=== PATIENT | female | born 1985 | race Caucasian/White ===

== ENCOUNTER 2021-02-20 11:52 | Emergency (ER) | payer OTHER, SELFPAY ==
[2021-02-20 11:58] VITALS: BP 97/51; PULSE 69; RESP 18; TEMP 36.2; O2SAT 100
[2021-02-20 13:07] LABS: Add Urine Microscopic? YES; Appearance Urine Cloudy (Clear); Bacteria Urine 4+ /hpf; Bilirubin Urine Negative (Negative); Blood Urine Negative (Negative); Color Urine Yellow (Yellow); Glucose Urine UA Negative (Negative); Ketones Urine Negative (Negative); Leukocyte Esterase Ur 3+ LEU/UL (Negative); Mucus Urine Rare /lpf; Nitrate Urine Negative (Negative); Protein Urine 1+ mg/dL (Negative); Specific Grav Ur 1.027 (1.001-1.035); Squamous Epithelial Cell Urine Many /hpf (Few); Urobilinogen Urine Negative mg/dL (<2.0); WBC Urine 31-50 /hpf
--- NOTE | 2021-02-20 13:21 | ED.GENADULT ---
HPI - General Adult General Chief complaint: Unspecified Stated complaint: Multiple C/O Time Seen by Provider: 02/20/21 13:18 Source: patient and RN notes reviewed Mode of arrival: ambulatory Limitations: no limitations History of Present Illness HPI narrative: Patient is 35 years old white female presents with vaginal discharge of white creamy material started 2 months ago, Last menstrual. October 2020, intermittent pimples and boils different parts of her body over the last 2 weeks. Patient is 2, para 2 0. Last vaginal intercourse was 3 months ago. Patient denies any fever, chills, nausea, vomiting, diarrhea, constipation, urinary symptoms. Patient does not smoke or drink or uses marijuana. Patient does not have a job. Related Data Allergies Allergy/AdvReac Type Severity Reaction Status Date / Time latex Allergy Intermediate rash with Verified 10/30/19 16:43 latex gloves Sulfa (Sulfonamide Allergy Mild BLISTERS Verified 10/30/19 16:43 Antibiotics) AND RASH venlafaxine [From Effexor] Allergy Other Verified 10/30/19 16:44 Review of Systems Review of Systems: Narrative: CONSTITUTIONAL: Denies fever, chills, or sweats. EYES: Denies visual changes, redness, or discharge. ENT: Denies rhinorrhea, congestion, sore throat, or otalgia. CARDIOVASCULAR: Denies chest pain, palpitations, or edema. RESPIRATORY: Denies cough or dyspnea. GASTROINTESTINAL: Denies abdominal pain, nausea, vomiting, or diarrhea. GENITOURINARY: Denies dysuria or hematuria. SKIN: Denies rash or itching. MUSCULOSKELETAL: Denies back pain, joint pain, or myalgia. NEUROLOGIC: Denies headache, numbness, or weakness. PSYCHIATRIC: Denies anxiety or depression. [facility] Past Medical History Medical History Anxiety Depression depression Surgical History Surgical History No history of previous surgery Social History Social History Smoking packs per day: 0.5 Smoking cigarettes per day: 10.0 Smoking status: Current every day smoker Tobacco type: cigarettes Second hand tobacco smoke exposure: Yes Exam Narrative: Exam Narrative: General appearance: Well-developed, well-nourished Skin: Few scattered pimples different spots of the body, with different stages of healing. Head: Normocephalic, nontraumatic Eyes: Clear conjunctiva ENT: Oropharynx normal, ears normal, nose normal Neck: Supple, nontender Chest and respiratory: Airway patent, no respiratory distress, no accessory muscle use Heart: Regular rate/rhythm Abdomen: Soft, nontender, no organomegaly, quiet bowel sounds Vascular: Normal peripheral pulses, normal capillary refill. Musculoskeletal: Normal range of motion, nontender back Neurologic: Alert and oriented ?3, WEB SPECIALIST is normal as tested, no gross motor deficit : External Female Exam: normal external appearance Speculum Exam - Vagina: normal appearance of the vagina Speculum Exam - Cervix: normal palpation and Cervical os closed Bimanual exam- vagina & uterus: normal bimanual exam Bimanual Exam- Adnexa, other: normal adnexae OB/external & speculum: external exam normal and vaginal discharge (Thick whitish discharge, no bleeding) Course Course Emergency Course: Stable Vital Signs Vital signs: Vital Signs Temperature 36.2 C L 02/20/21 11:58 Pulse Rate 69 02/20/21 11:58 Respiratory Rate 18 02/20/21 11:58 Blood Pressure 97/51 L 02/20/21 11:58 Pulse Oximetry 100 02/20/21 11:58 Temperature 36.2 C L 02/20/21 11:58 Pulse Rate 69 02/20/21 11:58 Res
[2021-02-20 15:30] LABS: Basophils Percent Auto 0.3 % (0.2-1.2); Eosinophils Absolute Auto 0.1 K/mm3 (0-0.3); Eosinophils Percent Auto 0.8 % (0-4.4); Hematocrit 36.9 % (37.0-47.0); Hemoglobin 12.2 g/dL (12.0-15.0); Immature Granulocyte Absolute 0.13 K/mm3 (0.00-0.031); Immature Granulocyte Percent A 1.5 % (0-0.5); Lymphocytes Absolute Auto 1.46 K/mm3 (0.9-3.2); Lymphocytes Percent Auto 16.8 % (18.3-44.2); Mean Corpuscular HGB Conc 33.1 g/dl (32-36); Mean Corpuscular Hemoglobin 30.2 pg (26-34); Mean Corpuscular Volume 91.3 fl (80-100); Mean Platelet Volume 10.7 fl (7.4-10.4); Monocytes Absolute Auto 0.5 K/mm3 (0.1-0.6); Monocytes Percent Auto 5.3 % (2.6-8.5); Neutrophils Absolute Auto 6.6 K/mm3 (1.3-6.7); Neutrophils Percent Auto 75.3 % (45.5-73.1); Platelet Count Result 284 k/mm3 (150-375); Red Blood Count 4.04 M/mm3 (4.2-5.4); Red Cell Distribution Width 13.4 % (11.5-14.5); White Blood Count 8.7 K/mm3 (4.5-10.0)
[2021-02-20 15:43] LABS: Alanine Aminotransferase 13 U/L (4-35); Albumin Level 3.7 g/dL (3.5-5.1); Alkaline Phosphatase 63 U/L (38-126); Anion Gap 5 mmol/L (8-16); Aspartate Amino Transferase 19 U/L (14-36); Bilirubin,Total < 0.1 mg/dL (0.2-1.3); Blood Urea Nitrogen 8 mg/dL (7-17); Calcium 8.8 mg/dL (8.4-10.2); Carbon Dioxide 25 mmol/L (22-30); Chloride 106 mmol/L (98-107); Estimated CRCL calculation 131 ml/min; Estimated Glomerular Filt Rate > 60; Glucose 79 mg/dL (65-105); Potassium 4.1 mmol/L (3.4-5.0); Sodium 136 mmol/L (137-145)
[2021-02-20] MEDS: AZITHROMYCIN 250 MG TABLET 1000 MG PO (17:03)
[2021-02-20] MEDS: cefTRIAXone 1 GM VIAL 0.5 GM IM (17:04)
== END 2021-02-20 17:05 | disposition home or self-care (01) ==
PROVIDERS: Emergency Medicine; Emergency Provider Emergency Medicine
DX: O23.41 Unspecified infection of urinary tract in pregnancy, first trimester (principal); O99.711 Diseases of the skin and subcutaneous tissue complicating pregnancy, first trimester; L08.9 Local infection of the skin and subcutaneous tissue, unspecified; B96.89 Other specified bacterial agents as the cause of diseases classified elsewhere; O99.331 Smoking (tobacco) complicating pregnancy, first trimester; F17.210 Nicotine dependence, cigarettes, uncomplicated; Z3A.12 12 weeks gestation of pregnancy
CPT/HCPCS: 36415; 80053; 81001; 81025; 84702; 85025; 85461; 87070; 87086; 87088; 87491; 87591; 87808; 96372; 99284; A9270; J0696

== ENCOUNTER 2021-07-04 06:10 | Inpatient (IN) | payer OTHER, SELFPAY ==
[2021-07-04] VITALS (60 sets, daily range): BP systolic 90–133; BP diastolic 41–86; PULSE 71–114; RESP 18–20; TEMP 35.9–36.8; O2SAT 95–100; BMI 32.8
[2021-07-04] MEDS: LACTATED RINGERS 1,000 ML 125 ML IV CONT ×2 (06:45→10:30)
[2021-07-04] MEDS: AMPICILLIN 2 GM/NS 100 ML 2 GM/100 ML BAG IVPB (06:45)
[2021-07-04] MEDS: OXYTOCIN 30 UNITS/NS 500 ML 30 UNITS/500 ML BAG IV CONT (06:55)
[2021-07-04 06:57] LABS: Basophils Absolute Auto 0.1 K/mm3 (0.0-0.1); Basophils Percent Auto 0.5 % (0.2-1.2); Eosinophils Absolute Auto 0.1 K/mm3 (0-0.3); Eosinophils Percent Auto 1.2 % (0-4.4); Hematocrit 30.2 % (37.0-47.0); Hemoglobin 9.9 g/dL (12.0-15.0); Immature Granulocyte Absolute 0.34 K/mm3 (0.00-0.031); Immature Granulocyte Percent A 3.1 % (0-0.5); Lymphocytes Absolute Auto 2.56 K/mm3 (0.9-3.2); Lymphocytes Percent Auto 23.3 % (18.3-44.2); Mean Corpuscular HGB Conc 32.8 g/dl (32-36); Mean Corpuscular Hemoglobin 29.4 pg (26-34); Mean Corpuscular Volume 89.6 fl (80-100); Mean Platelet Volume 11.1 fl (7.4-10.4); Monocytes Absolute Auto 0.8 K/mm3 (0.1-0.6); Monocytes Percent Auto 7.4 % (2.6-8.5); Neutrophils Absolute Auto 7.1 K/mm3 (1.3-6.7); Neutrophils Percent Auto 64.5 % (45.5-73.1); Platelet Count Result 344 k/mm3 (150-375); Red Blood Count 3.37 M/mm3 (4.2-5.4); Red Cell Distribution Width 14.9 % (11.5-14.5)
--- NOTE | 2021-07-04 07:12 | LDADM ---
This patient, Lynne Leiva, was admitted to Labor/Delivery/Recovery 104 on 07/04/21 at 06:10. Plans for labor, pain management and were discussed with patient. Patient/family oriented to hospital policies and general routines including ID bracelet, bed and alarms, visiting hours, pain management, procedures, bathroom and other care routines, personal items, smoking policy, room service/diet and guest tray routines, security routines, call light and visiting hours. Patient/Family are encouraged to report perceived risks to care and to ask questions if they do not understand what they are told or what they should do. See [facility]BIX for further documentation.
[2021-07-04 07:51] LABS: HIV 1/2 Ab P24 Ag Result Negative (Negative)
[2021-07-04 08:18] LABS: Amphetamine Screen Urine Negative (Negative); Barbiturate Screen Urine Negative (Negative); Benzodiazepines Screen Urine Negative (Negative); Cannabinoid Screen Urine Negative (Negative); Cocaine Screen Urine Negative (Negative); Methadone Screen Urine Negative (Negative); Opiate Screen Urine Negative (Negative); Phencyclidine Screen Urine Negative (Negative)
--- NOTE | 2021-07-04 09:04 | WPDANESEPP ---
Anes - Eval Pre Procedure Procedure: Labor Pain Management Date/Time: 07/04/21 09:04 Surgeon: Solomon Preop Diagnosis: Pain During Labor Pre Op Diagnosis: induction Patient Data Age: 35 Gender: F Height: 1.63 m Weight: 86.6 kg Last Vital Signs Temp 97.9 F 07/04/21 08:30 Pulse 73 07/04/21 08:00 BP 106/53 L 07/04/21 08:00 Allergies Allergy/AdvReac Type Severity Reaction Status Date / Time latex Allergy Intermediate rash with Verified 07/04/21 06:39 latex gloves Sulfa (Sulfonamide Allergy Mild BLISTERS Verified 07/04/21 06:39 Antibiotics) AND RASH venlafaxine [From Effexor] Allergy Other Verified 07/04/21 06:39 Laboratory Tests 07/04/21 07/04/21 07/04/21 06:47 06:47 06:47 WBC 11.0 K/mm3 H K/mm3 (4.5-10.0) RBC 3.37 M/mm3 L M/mm3 (4.2-5.4) Hgb 9.9 g/dL L g/dL (12.0-15.0) Hct 30.2 % L % (37.0-47.0) MCV 89.6 fl fl (80-100) MCH 29.4 pg pg (26-34) MCHC 32.8 g/dl g/dl (32-36) RDW 14.9 % H % (11.5-14.5) Plt Count 344 k/mm3 k/mm3 (150-375) MPV 11.1 fl H fl (7.4-10.4) Immature Gran % (Auto) 3.1 % H % (0-0.5) Neut % (Auto) 64.5 % % (45.5-73.1) Lymph % (Auto) 23.3 % % (18.3-44.2) [place] % (Auto) 7.4 % % (2.6-8.5) Eos % (Auto) 1.2 % % (0-4.4) Baso % (Auto) 0.5 % % (0.2-1.2) Lymph # (Auto) 2.56 K/mm3 K/mm3 (0.9-3.2) [place] # (Auto) 0.8 K/mm3 H K/mm3 (0.1-0.6) Eos # (Auto) 0.1 K/mm3 K/mm3 (0-0.3) Baso # (Auto) 0.1 K/mm3 K/mm3 (0.0-0.1) Abs Immat Gran (auto) 0.34 K/mm3 H K/mm3 (0.00-0.031) Absolute Neuts (auto) 7.1 K/mm3 H K/mm3 (1.3-6.7) Absolute Nucleated RBC 0.0 K/mm3 K/mm3 (0.0-0.012) Nucleated RBC % 0.0 % % (0.0-0.2) Urine Opiates Screen Urine Methadone Screen Ur Barbiturates Screen Ur Phencyclidine Scrn Ur Amphetamine Screen U Benzodiazepines Scrn Urine Cocaine Screen U Cannabinoids Screen RPR Pending HIV 1&2 Ab/P24 Ag 4thGn Negative (Negative) 07/04/21 07:30 WBC RBC Hgb Hct MCV MCH MCHC RDW Plt Count MPV Immature Gran % (Auto) Neut % (Auto) Lymph % (Auto) [place] % (Auto) Eos % (Auto) Baso % (Auto) Lymph # (Auto) [place] # (Auto) Eos # (Auto) Baso # (Auto) Abs Immat Gran (auto) Absolute Neuts (auto) Absolute Nucleated RBC Nucleated RBC % Urine Opiates Screen Negative (Negative) Urine Methadone Screen Negative (Negative) Ur Barbiturates Screen Negative (Negative) Ur Phencyclidine Scrn Negative (Negative) Ur Amphetamine Screen Negative (Negative) U Benzodiazepines Scrn Negative (Negative) Urine Cocaine Screen Negative (Negative) U Cannabinoids Screen Negative (Negative) RPR HIV 1&2 Ab/P24 Ag 4thGn : gestational age (07/10/21) HCG: positive Patient hx anesthesia problems: none Family hx anesthesia problems: none [facility] Past Medical History Medical History (Updated 07/04/21 @ 09:04 by Jennifer Escobedo CRNA) Anxiety Depression Pain during labor depression Surgical History Surgical History No history of previous surgery Social History Social History Smoking packs per day: 0.5 Smoking cigarettes per day: 10.0 Smoking status: Current every day smoker Tobacco type: cigarettes Second hand tobacco smoke exposure: Yes Additional smoking assessment comments: 1-2 cigs a day Substance use: former Spiritual care concerns
[2021-07-04] MEDS: AMPICILLIN 1 GM/NS 50 ML 1 GM/50 ML BAG IVPB (10:31)
--- NOTE | 2021-07-04 11:14 | P.PCNOB_ITS ---
OB - Delivery Note Procedure Route of delivery: Episiotomy description: None Laceration Description: Perineal - 1st Degree Delivery repair: chromic Specimen: Yes Quantitative Blood Loss (ml): 200 Anesthesia type: Epidural Disposition: floor Narrative: Patient prepped and draped in usual manner for this procedure. Ma ternal expulsive efforts and readily delivered over intact perineum. Cord was clamped and cut and placenta delivered spontaneously. Uterus was well contracted. Cervix vagina vulva were inspected with midline laceration noted which was readily approximated using 2 0 chromic in a running interlocking manner. At this point the procedure was considered terminated with immediate postoperative condition of mother and baby both excellent. [place] [facility] Weeks of gestation at delivery: 39 Infant gender: Male Weight (pounds): 8 Weight (ounces): 2 score one minute: 9 score five minutes: 9
--- NOTE | 2021-07-04 11:16 | WPDHPUPDATE1 ---
History and Physical Update Update Date/Time: 07/04/21 11:16 History and Physical has been reviewed, including an updated exam of the patient. There are NO changes in the patient's condition. Risks, benefits, and alternatives have been discussed and questions answered. Patient agrees to proceed with procedure.
--- NOTE | 2021-07-04 11:16 | WPDOBADMIT ---
Obstetrics - Admit Note Admission Note: record reviewed. No pertinent additions to the history and/or any subsequent changes in the physical findings that are not consistent with the expected course of the were found. Additions to the history and/or subsequent changes in the physical findings follow. None.
[2021-07-04] MEDS: OXYTOCIN 30 UNITS/NS 500 ML 30 UNITS/500 ML BAG 125 UNITS IV CONT (11:46)
[2021-07-04] MEDS: ACETAMINOPHEN 325 MG TABLET 650 MG PO ×2 (13:49→19:23)
--- NOTE | 2021-07-04 14:00 | OBPPTRN ---
Patient transferred to post room # 287 via wheelchair. Support person present. Oriented to unit, room, information board, rooming in, admission packet and security measures. Patient verbalizes understanding.
--- NOTE | 2021-07-04 16:45 | PC.NURSE ---
DCFS here to speak with pt. Report given to agent.
--- NOTE | 2021-07-04 17:40 | PC.NURSE ---
165: [facility] Agent came to see pt. [phone]: [facility] Agent asked when pt will be discharged to home. Told him that she will stay until Tuesday. Agent stated to not let pt take baby home until DCFS agent comes to see pt again on Tuesday before pt is discharged. He could not verify what the outcome of the today's visit would be; he reinforced that a different agent will be taking the case and will see pt. on Tuesday and any further information will be discussed at that time.
[2021-07-04] MEDS: IBUPROFEN 600 MG TABLET PO (23:33)
[2021-07-05 03:40] VITALS: BP 118/75; PULSE 73; RESP 18; TEMP 36.2; O2SAT 99
[2021-07-05] MEDS: ACETAMINOPHEN 325 MG TABLET 650 MG PO ×2 (03:54→17:05)
[2021-07-05 05:46] LABS: Hematocrit 31.3 % (37.0-47.0); Hemoglobin 9.8 g/dL (12.0-15.0)
--- NOTE | 2021-07-05 07:04 | PCCCNOTE ---
Addendum entered by DAVE Maravilla 07/14/21 15:59: Meconium results provided to Negra with [facility]. Addendum entered by DAVE Maravilla 07/06/21 15:22: Spoke to DCFS worker, Negra today. She indicates pt. able to discharge home with baby boy today. She plans to visit pt. at her home this evening. RN notified. Original Note: Received consult. Met with pt. Pt. reports living with her mother and grandmother. She confirms history of cocaine use. She states being depressed at time of heavy drug and alcohol use in the past. She reports participating in drug rehab and classes regarding same. She does not clarify when last used. She has two other children, ages 4 and 6. She confirms DCFS involvement and her father has custody of one child. She indicates other child being privately adopted. Her UDS is all negative. Meconium results pending. She indicates limited care as states not knowing she was until 6 months along. She indicates having all needed items to care for at return home with her mother and grandmother. She states father of baby is not involved. She reports no concerns or issues regarding this situation. Report made to [facility] regarding all above and employment case manager present at hospital last evening; 07/04/21. Per nursing documentation, pt. to be seen by DCFS prior to her discharge on Tuesday; 07/06/21 and determination to made regarding at that time. Intake ID#[id number].
[2021-07-05 07:50] VITALS: BP 105/63; PULSE 62; RESP 18; TEMP 36.7
[2021-07-05] MEDS: MULTIVIT/MIN/PREN/FOL AC/IRON TABLET 1 TAB PO (09:45)
[2021-07-05] MEDS: POLYSACCHARIDE IRON COMPLEX 150 MG CAPSULE PO ×2 (09:45→17:05)
[2021-07-05] MEDS: DOCUSATE SODIUM 100 MG CAPSULE PO ×2 (09:45→17:05)
[2021-07-05] MEDS: TETANUS,DIPHTHERIA,AC PERTUSSIS ADULT (0.5 ML) BOOSTRIX IM (09:46)
[2021-07-05] MEDS: IBUPROFEN 600 MG TABLET PO ×2 (09:49→17:06)
--- NOTE | 2021-07-05 10:29 | WPDANLDPN2 ---
Anes-Prog Note L&D Date/Time: 07/05/21 10:29 Comfortable throughout: labor and delivery Neuraxial method: epidural Epidural/Spinal procedure site: tender (pt complaints of generalized lower back pain with accompanying tenderness at insertion site.spoke with nurse re obtaining cooling pad for patient. (pt states too hot for warm pad ) ) Neuro status: Neuro function grossly intact. Cardiovascular status: normal Respiratory status: normal Airway patency: baseline Mental status: baseline Post-Op hydration status: normal Vital Signs: Last Vital Signs Temp 98.1 F 07/05/21 07:50 Pulse 62 07/05/21 07:50 Resp 18 07/05/21 07:50 BP 105/63 07/05/21 07:50 Pulse Ox 99 07/05/21 03:40 Pain score (VAS): 4 Post-procedural complaints: none Patient feedback: Patient satisfied with anesthetic care.
--- NOTE | 2021-07-05 10:36 | PM.OBDSVD ---
DS: Admitting Diagnosis Discharge Date 07/06/2021 Admitting Diagnosis OB - DS: Summary OB Procedures : None OB Procedures Intrapartum: Spontaneous Vag Delivery OB Procedures: : None Time Spent with Patient Time attestation: Total time spent providing and/or coordinating discharge services: DS: Data Data Completed and Pending Pending studies at discharge: Pending at discharge 07/04/21 13:30 Surgical [PTH] Routine Labs on day of discharge: Labs from last 24 hours 07/05/21 03:42 Hgb 9.8 L Hct 31.3 L Discharge Plan Discharge Discharging Clinician: Phil Carbajal Anticipated Discharge Date/Time: 07/06/21 10:36 Patient Disposition: Home, Self-Care Activity: as tolerated Diet: as tolerated Patient Instructions: Antibiotic Form, How to Stop Smoking (GEN) Stand Alone Forms: General Discharge Information Follow-up/Referrals: Phil Carbajal MD [Physician] - 3 Weeks Discharge Medications: New ibuprofen 600 mg Tablet 600 mg PO Q6H PRN (Reason: Cramping) Qty: 30 RF: 0 Date of admission: 07/04/21 06:10 Primary Care Provider: PHYSICIAN,SHEET ROCK INSTALLER Admitting Provider: Phil Carbajal Attending physician on admission: Phil Carbajal Condition: Stable
[2021-07-05 18:21] VITALS: BP 110/60; PULSE 65; RESP 16; TEMP 36.3; O2SAT 99
--- NOTE | 2021-07-05 19:30 | PC.NURSE ---
07/05/2021 at 1830 I entered the room and mother had not taken her meds of Tylenol 650 mg, Motrin, Iron, and Colace that had been handed to the patient at 1705. I actually watched the patient take these meds at this time.
--- NOTE | 2021-07-06 05:32 | PC.NURSE ---
07/06/2021 at 2200 Patient viewed the discharge video Mother & Baby Care, The First Two Weeks . Patient was given the opportunity and encouraged to ask questions. Patient verbalized understanding of information shared and has been given the mother/baby guide for home reference.
[2021-07-06] MEDS: MULTIVIT/MIN/PREN/FOL AC/IRON TABLET 1 TAB PO (07:23)
[2021-07-06] MEDS: POLYSACCHARIDE IRON COMPLEX 150 MG CAPSULE PO (07:23)
[2021-07-06] MEDS: IBUPROFEN 600 MG TABLET PO (07:23)
[2021-07-06] MEDS: DOCUSATE SODIUM 100 MG CAPSULE PO (07:23)
[2021-07-06 07:30] VITALS: BP 104/57; PULSE 66; RESP 16; TEMP 36.9; O2SAT 95
[2021-07-06 10:08] LABS: Rapid Plasma Reagin Non-Reactive (NonReactive)
[2021-07-06] MEDS: ACETAMINOPHEN 325 MG TABLET 650 MG PO (10:36)
--- NOTE | 2021-07-06 12:20 | PC.NURSE ---
Mother called out for assist with feeding, reporting is unable to latch without nipple shield. Mother will put infant to breast using shield, mother has pain with feeding. Infant is then supplemented and mother will pump. Mother is pumping without difficulties or discomfort and has a double electric pump for home use. Infant is able to freely thrust tongue to gum ridge and flange both lips. Both nipples are everted, skin is intact on both nipples, no redness or bruising noted. Mother reports pain with all feedings. Nipple care reviewed of lanolin after feedings, before pumping and warm compressed to nipples several times per day. Discussed nipple shield precautions and possible complications. Instructions given on application and cleaning of shield. Patient able to return demonstration on proper application of shield. Discussed the need for regular pumping, until her milk is well established and is able to empty breast and be satisfied without supplementation, if continues to nurse with the shield. Patient verbalizes understanding. Reviewed weaning techniques for nipple shield. Reviewed infant feeding cues, frequencies, duration of feedings, feeding elimination flow sheet, and signs of adequate intake. Demonstrated stimulation techniques to wake for feeding. Assisted with to breast. Reviewed positioning/alignment in football, holding breast in ?C? hold and guided asymmetrical latch on. Discussed rational for each. Several attempts made before was able to latch. Infant latched with a shallow latch, mother allowed infant to continue to nurse with pain. Demonstrated how to adjust latch more deeply while feeding. Mother reports she can feel the difference and does not have pain. Advised to stimulate to keep infant nursing effectively for increased intake, increased stimulation and assist with maintaining deep latch. Reviewed signs of a correct latch, effective nursing and suck swallow ratio. Infant nursed eagerly, with steady draws and occasional swallowing noted. Reviewed the difference of effective vs ineffective nursing. Discussed increasing supplementation as infant requires to satisfactions. Reviewed paced feeding and suggested to stop when infant is satisfied, as long as infant is having required output. With increased supplementation infant may not want to feed for 4 hours. Mother will continue to pump on feeding schedule and will increase session to 20 minutes if pumping every 4 hours 15 minutes if pumping every three hours. . Reviewed once mother?s milk is established and is effectively feeding may have increased intake with nursing. If is effective feeding with long draws and frequent swallowing noted , may be ready to decrease/discontinue supplementation. Advised not to discontinue supplement until ICP, Follow-Up RN or LC has a pre/post weighted evaluation of feeding. Instructed mother to call out for RN assistance if she is unable to latch infant for feeding or she has discomfort with nursing. Instructed feeding should be initiated three hours from start of last feeding or if feeding cues are noted before. Mother voiced understanding of information shared. Mother plans on discharge this day. Mother is feeding as required and waking infant to feed if needed. Infant is currently meeting outcomes for weight, output, jaundice and feeding frequencies. Mother states she feels confident to continue current feeding plan at home. Reviewed transition to breast milk, signs of adequate intake, and engorgement/relief. Instructed to call ICP if intake/output less than required. Reviewed regular medications mother is taking. Information provided per Janina. Reviewed community resources on the [employer] website and in the Mom/Baby guide. Information on outpatient services provided. Mother has no further q
--- NOTE | 2021-07-08 13:19 | PM.OBDSVD ---
DS: Admitting Diagnosis Discharge Date 07/06/21 Admitting Diagnosis OB - DS: Summary OB Procedures : None OB Procedures Intrapartum: Spontaneous Vag Delivery OB Procedures: : None Time Spent with Patient Time attestation: Total time spent providing and/or coordinating discharge services: DS: Data Data Completed and Pending Pending studies at discharge: Pending at discharge 07/04/21 13:30 Surgical [PTH] Routine Discharge Plan Discharge Discharging Clinician: Phil Carbajal Anticipated Discharge Date/Time: 07/06/21 10:36 Patient Disposition: Home, Self-Care Activity: as tolerated Diet: as tolerated Discharge Instructions: Education: Mom and Baby Guide Given to: Mother Follow-Up: Call your delivering provider's office for an appointment to be seen in: 3 weeks Mom and baby should come to the [facility] for the follow-up appointment. Appointment Date/Time: Thursday, July 08, 2021 at 8:00 am What to expect at your follow-up visit: Blood Pressure Check Physical Assessment Call [phone] if you are unable to keep your appointment time. BREAST CARE: * Wear a snug supportive bra. * For engorgement discomfort: Breast Feeding: * Apply warm moist washcloths * Express milk as needed to relieve engorgement * Wear loose clothing * For sore nipples: * Identify correct latch-on * Apply warm moist washcloths before and after nursing * Air dry nipples after nursing * May apply Lansinoh cream to nipples EPISIOTOMY/PERINEAL CARE: * Until bleeding stops, use your michelle bottle after urinating * Change your pad frequently throughout the day * You may take sitz baths several times a day (fill your bathtub with warm water and soak for 20 minutes.) Do NOT bathe in the water * No tub baths until seen by your physician - You may shower ACTIVITY: * Rest as much as possible. * Do not exercise or lift anything heavier than your baby (such as laundry or other children.) * Avoid stairs or driving as much as possible. * Do not put anything into the vagina. No douching, tampons, or sexual activity until seen by physician. NOTIFY PHYSICIAN IF YOU HAVE ANY QUESTIONS OR IF ANY OF THE FOLLOWING SYMPTOMS OCCUR: * If your vaginal delivery becomes red, swollen, or more painful than what you have experienced in the hospital. * If your vaginal bleeding becomes foul smelling. * If your vaginal bleeding becomes more heavy than a period or if your bleeding changes from pink to bright red. However, you may pass an occasional walnut-sized clot once or twice for the first week . * If you experience a sharp, shooting pain in your calves. * If you discover a hard, reddened area on your breast or if you experience flu-like symptoms. DIET: * Eat regular, well-balanced meals. * Drink plenty of fluids daily. If , drink to thirst. Patient Instructions: How to Stop Smoking (GEN), Vaginal Delivery (DC) Stand Alone Forms: General Discharge Information Follow-up/Referrals: Phil Carbajal MD [Physician] - 3 Weeks Discharge Medications: New ibuprofen 600 mg Tablet 600 mg PO Q6H PRN (Reason: Cramping) Qty: 30 RF: 0 Date of admission: 07/04/21 06:10 Primary Care Provider: PHYSICIAN,SCENE AND LIGHTING DESIGN LECTURER Admitting Provider: Phil Carbajal Attending physician on admission: hPil Carbajal Condition: Stable
== END 2021-07-06 17:30 | disposition home or self-care (01) | DRG 560 ==
LOC: ANHLDR 06:14 → ANHOB2 14:06
PROVIDERS: Admitting Provider Obstetrics & Gynecology; Visit Provider Obstetrics & Gynecology
DX: O99.334 Smoking (tobacco) complicating childbirth (principal); F17.210 Nicotine dependence, cigarettes, uncomplicated; Z3A.39 39 weeks gestation of pregnancy; Z37.0 Single live birth; O70.0 First degree perineal laceration during delivery
CPT/HCPCS: 36415; 80307; 85014; 85018; 85025; 86592; 86703; 86850; 86900; 86901; 88307; 90715; A9270; G0432; J0290; J2590; J2795; J7120

== ENCOUNTER 2021-12-21 14:16 | Emergency (ER) | payer OTHER, SELFPAY ==
[2021-12-21 14:21] VITALS: BP 120/78; PULSE 81; RESP 14; TEMP 36.3; O2SAT 100
--- NOTE | 2021-12-21 14:40 | ED.GENADULT ---
HPI - General Adult General Chief complaint: Unspecified Stated complaint: infection in nose Time Seen by Provider: 12/21/21 14:24 History of Present Illness HPI narrative: 36-year-old female presents to the emergency room with complaints of intranasal pain. Patient states that she frequently picks her nose, and has recently noticed some epistaxis. Also complains of sinus congestion, sinus drainage and postnasal drip. Symptoms of been present for 2 weeks. Denies taking any [id number] medications to alleviate symptoms Review of Systems Review of Systems: CONSTITUTIONAL: Denies fever, chills, or sweats. EYES: Denies visual changes, redness, or discharge. ENT: Per HPI: Reports rhinorrhea, congestion, dental pain. CARDIOVASCULAR: Denies chest pain, palpitations, or edema. RESPIRATORY: Denies cough or dyspnea. GASTROINTESTINAL: Denies abdominal pain, nausea, vomiting, or diarrhea. GENITOURINARY: Denies dysuria or hematuria. SKIN: Denies rash or itching. MUSCULOSKELETAL: Denies back pain, joint pain, or myalgia. NEUROLOGIC: Denies headache, numbness, dizziness, or weakness. PSYCHIATRIC: Denies anxiety or depression. Exam Narrative: GENERAL: Well-appearing, well-nourished, and in no acute distress. HEAD: Normocephalic, atraumatic. EYES: PERRLA and EOMI. ENT: Small, non-bleeding ulcerations to inferior turbinates, no epistaxis. Mucous membranes moist. Widespread poor dentition. NECK: Supple. No adenopathy or masses. No carotid bruits or JVD CHEST: Clear to auscultation. No respiratory distress. No wheezes rales or rhonchi HEART: Regular rate and rhythm. No murmur heard. Normal peripheral pulses. ABDOMEN: Soft, nontender, nondistended, normal active bowel sounds. EXTREMITIES: Normal range of motion. No edema. SKIN: Warm, dry, no rash. NEURO: No focal deficits. Alert and oriented x3. PSYCH: Normal mood and affect. Course Vital Signs Vital signs: Vital Signs Temperature 36.3 C L 12/21/21 14:21 Pulse Rate 81 12/21/21 14:21 Respiratory Rate 14 12/21/21 14:21 Blood Pressure 120/78 12/21/21 14:21 Pulse Oximetry 100 12/21/21 14:21 Temperature 36.3 C L 12/21/21 14:21 Pulse Rate 81 12/21/21 14:21 Respiratory Rate 14 12/21/21 14:21 Blood Pressure 120/78 12/21/21 14:21 Pulse Oximetry 100 12/21/21 14:21 Medical Decision Making Vital Signs Vital Signs: Vital Signs Temperature 36.3 C L 12/21/21 14:21 Pulse Rate 81 12/21/21 14:21 Respiratory Rate 14 12/21/21 14:21 Blood Pressure 120/78 12/21/21 14:21 Pulse Oximetry 100 12/21/21 14:21 Temperature 36.3 C L 12/21/21 14:21 Pulse Rate 81 12/21/21 14:21 Respiratory Rate 14 12/21/21 14:21 Blood Pressure 120/78 12/21/21 14:21 Pulse Oximetry 100 12/21/21 14:21 Discharge Plan Discharge Clinical Impression: Pain due to dental caries, Congestion of nasal sinus URI (upper respiratory infection) Qualifiers: URI type: unspecified URI Qualified Code(s): J06.9 - Acute upper respiratory infection, unspecified Patient Disposition: Hospice - Home Condition: Stable Additional Instructions: Recommend asking the pharmacist for pseudoephedrine 30 mg tablets. May take 1 tablet every 6 hours for sinus congestion. Prescriptions: New fluticasone propionate [Flonase Allergy Relief] 50 mcg/actuation spray,suspension 1 spray intranasal DAILY Qty: 16 RF: 0 amoxicillin-pot clavulanate 875-125 mg tablet 1 tablet PO Q12H Qty: 14 RF: 0 Follow-up/Referrals: UNKNOWN,DOCTOR [Primary Care Provider] - Time of Disposition: 14:53
== END 2021-12-21 15:00 | disposition home or self-care (01) ==
PROVIDERS: Emergency Provider Nurse Practitioner Family
DX: J06.9 Acute upper respiratory infection, unspecified (principal); K02.9 Dental caries, unspecified
CPT/HCPCS: 99283

== ENCOUNTER 2022-11-13 09:46 | Emergency (ER) | payer OTHER, SELFPAY ==
--- NOTE | ~2022-11-13 | CT_ITS ---
EXAMINATION: CT soft tissue neck w con DATE: 11/13/2022 11:28 INDICATION: Right lower jaw swelling. Dental infection. TECHNIQUE: Computed tomography (CT) of the neck was performed with 75 mL Omnipaque-350 intravenous co ntrast. The dose-length product was 521.00 mGy-cm. Automated exposure control and iterative reconstru ction technique were employed. COMPARISON: None FINDINGS: There is right perimandibular soft tissue swelling/asymmetry with subcutaneous fatty infilt ration, consistent with cellulitis. No discrete walled off fluid collection is identified. Mildly enl arged submandibular lymph nodes, likely reactive. Mildly enlarged mucosal and parapharyngeal spaces a re symmetric. Cervical lymph node chain enlargement, also likely reactive. No intracranial abnormalit y is seen. No significant abnormal intracranial contrast enhancement. The carotid arteries are unrema rkable. There are multiple dental caries. IMPRESSION: 1. Moderate inflammatory changes in the right perimandibular soft tissues without discrete abscess. 2: Mild cervical lymphadenopathy, likely reactive. Reviewed, dictated and finalized at location A. MOLD TESTER IMPRESSION: 1. Moderate inflammatory changes in the right perimandibular soft tissues witho ut discrete abscess. 2: Mild cervical lymphadenopathy, likely reactive.
[2022-11-13 09:47] VITALS: BP 118/72; PULSE 99; RESP 20; TEMP 36.6; O2SAT 97
--- NOTE | 2022-11-13 09:56 | ED.DENTAL ---
HPI - Dental/Oral General Chief complaint: Dental/Oral Stated complaint: TOOTH ISSUES Time Seen by Provider: 11/13/22 09:53 Source: patient Mode of arrival: ambulatory Limitations: no limitations History of Present Illness HPI Narrative: Patient is a 37 y/o female who presents to the ED with c/o right lower dental pain. Patient has a history of known dental fractures and dental caries. Reports she began having pain in her right lower teeth, particularly around tooth #29, over the last 2 days. She called her primary care doctor and was started on amoxicillin 875 mg. Patient has been taking this as directed. Last night, patient noticed worsening pain and swelling in her right lower jaw. She has tried using aspirin and Orajel with minimal relief. Reports nausea w/ 1 episode of vomiting last night, denies fever, trismus, sore throat, difficulty swallowing or breathing. Related Data Allergies Allergy/AdvReac Type Severity Reaction Status Date / Time latex Allergy Intermediate rash with Verified 11/13/22 11:04 latex gloves Sulfa (Sulfonamide Allergy Mild BLISTERS Verified 11/13/22 11:04 Antibiotics) AND RASH venlafaxine [From Effexor] Allergy Other Verified 11/13/22 11:04 Review of Systems Review of Systems: CONSTITUTIONAL: Denies fever, chills, or sweats. ENT: See HPI. CARDIOVASCULAR: Denies chest pain. RESPIRATORY: Denies cough or dyspnea. GASTROINTESTINAL: See HPI. All systems reviewed & are unremarkable except as noted in HPI and below PMFSH Past Medical History Medical History Anxiety Depression Pain during labor depression Surgical History Surgical History No history of previous surgery Social History Social History Smoking packs per day: 0.5 Smoking cigarettes per day: 10.0 Smoking status: Current every day smoker Tobacco type: cigarettes Second hand tobacco smoke exposure: Yes Additional smoking assessment comments: 1-2 cigs a day Substance use: former Spiritual care concerns: No Exam Narrative: GENERAL: Well appearing, obese, non-toxic, in no acute distress. HEAD: Normocephalic, atraumatic. ENT: No trismus. Significant dental decay diffusely. Several cracked teeth in R lower molar region, tenderness to palpation to inner and outer surrounding gumline, erythematous, no focal fluctuance. Area of induration and tenderness over right lower mandible at level of lower teeth. NECK: Supple. No adenopathy, no masses. RESPIRATORY: Airway patent, respirations nonlabored. Clear to auscultation bilaterally, no rales, rhonchi, wheezing. CARDIOVASCULAR: Regular rate and rhythm without murmurs, rubs, or gallops. Radial pulses 2+ and equal bilaterally. MUSCULOSKELETAL: Moves all extremities. Strength/ROM intact without gross deformities. SKIN: Warm, dry, normal color. No rashes. NEURO: A&O X3. Speech clear. Cranial nerves II-XII grossly intact. Steady gait. No ataxic movements. PSYCHIATRIC: Appropriate mood and affect. Normal interaction. HENMT: Teeth image: 1. severe dental decay, fractured teeth, exposed roots Course Vital Signs Vital signs: Vital Signs Temperature 98 F 11/13/22 09:47 Pulse Rate 99 11/13/22 09:47 Respiratory Rate 20 11/13/22 09:47 Blood Pressure 118/72 11/13/22 09:47 Pulse Oximetry 97 11/13/22 09:47 Oxygen Delivery Room Air 11/13/22 09:47 Temperature 98 F 11/13/22 09:47 Pulse Rate 99 11/13/22 09:47 Respiratory Rate 18 11/13/22 12:42 Blood Pressure 116/69 11/13/22 12:42 Pulse Oximetry 98 11/13/22 12:42 Oxygen Delivery Room Air 11/13/22 09:47 MDM - Dental/Oral MDM Narrative Medical decision making narrative: Patient presented to ED w/ 2 day history of R lower dental pain/infection, jaw swelling. VSS upon arrival. Afebrile.
[2022-11-13] MEDS: ONDANSETRON INJ 4 MG/2 ML VIAL IV PUSH (10:44)
[2022-11-13] MEDS: MORPHINE SULFATE (*CRX) 4 MG/ML INJ IV PUSH (10:44)
[2022-11-13 10:49] LABS: Basophils Percent Auto 0.4 % (0.2-1.2); Eosinophils Absolute Auto 0.1 K/mm3 (0-0.3); Eosinophils Percent Auto 0.6 % (0-4.4); Hematocrit 39.8 % (37.0-47.0); Immature Granulocyte Absolute 0.04 K/mm3 (0.00-0.031); Immature Granulocyte Percent A 0.4 % (0-0.5); Lymphocytes Absolute Auto 1.62 K/mm3 (0.9-3.2); Lymphocytes Percent Auto 16.6 % (18.3-44.2); Mean Corpuscular HGB Conc 32.7 g/dl (32-36); Mean Corpuscular Hemoglobin 27.8 pg (26-34); Mean Platelet Volume 10.3 fl (7.4-10.4); Monocytes Absolute Auto 0.6 K/mm3 (0.1-0.6); Monocytes Percent Auto 6.2 % (2.6-8.5); Neutrophils Absolute Auto 7.4 K/mm3 (1.3-6.7); Neutrophils Percent Auto 75.8 % (45.5-73.1); Platelet Count Result 311 k/mm3 (150-375); Red Blood Count 4.68 M/mm3 (4.2-5.4); Red Cell Distribution Width 14.3 % (11.5-14.5); White Blood Count 9.8 K/mm3 (4.5-10.0)
[2022-11-13 11:03] LABS: Alanine Aminotransferase 23 U/L (6-35); Albumin Level 4.3 g/dL (3.5-5.1); Alkaline Phosphatase 83 U/L (38-126); Anion Gap 6 mmol/L (8-16); Aspartate Amino Transferase 19 U/L (14-36); Bilirubin,Total 0.4 mg/dL (0.2-1.3); Blood Urea Nitrogen 6 mg/dL (7-17); Calcium 8.4 mg/dL (8.4-10.2); Carbon Dioxide 23 mmol/L (22-30); Chloride 104 mmol/L (98-107); Estimated CRCL calculation 145 ml/min; Estimated Glomerular Filt Rate > 60; Glucose 101 mg/dL (65-110); Potassium 3.9 mmol/L (3.4-5.0); Sodium 133 mmol/L (137-145)
[2022-11-13 12:42] VITALS: BP 116/69; RESP 18; O2SAT 98
== END 2022-11-13 12:44 | disposition home or self-care (01) ==
PROVIDERS: Emergency Provider Physician Assistant; PCP Registered Nurse
DX: K04.7 Periapical abscess without sinus (principal); L03.211 Cellulitis of face; K03.81 Cracked tooth; K02.9 Dental caries, unspecified; F17.210 Nicotine dependence, cigarettes, uncomplicated
CPT/HCPCS: 36415; 70491; 80053; 85025; 96374; 96375; 99284; J2270; J2405; Q9967

== ENCOUNTER 2023-08-26 11:22 | Emergency (ER) | payer OTHER, SELFPAY ==
[2023-08-26 11:26] VITALS: BP 123/75; PULSE 98; RESP 16; TEMP 36.4; O2SAT 98
--- NOTE | 2023-08-26 11:54 | ED.DENTAL ---
HPI - Dental/Oral General Chief complaint: Dental/Oral <Lindsay Sheppard PA-C - Last Filed: 08/26/23 12:02> Stated complaint: dental pain and swelling <Lindsay Sheppard PA-C - Last Filed: 08/26/23 12:02> Time Seen by Provider: 08/26/23 11:29 <Lindsay Sheppard PA-C - Last Filed: 08/26/23 12:02> History of Present Illness HPI Narrative: 37-year-old female with a history of dental caries, dental fractures and dental infections reports for evaluation for right lower dental pain and swelling that started yesterday. Patient states 1 week ago, she was eating chips and felt her right lower tooth break. States yesterday she began developing swelling and pain in this area and thinks there has been pus draining from her gum. She reports subjective fevers but has not taken her temperature. Denies difficulty breathing, swallowing, opening her mouth, sore throat or otalgia. States she does have a dentist but has not called to schedule an appointment. <Lindsay Sheppard PA-C - Last Filed: 08/26/23 12:02> Related Data Allergies/adverse reactions: Allergies Allergy/AdvReac Type Severity Reaction Status Date / Time latex Allergy Intermediate rash with Verified 08/26/23 11:24 latex gloves Sulfa (Sulfonamide Allergy Mild BLISTERS Verified 08/26/23 11:24 Antibiotics) AND RASH venlafaxine [From Effexor] Allergy Other Verified 08/26/23 11:24 <Lindsay Sheppard PA-C - Last Filed: 08/26/23 12:02> Review of Systems Review of Systems: CONSTITUTIONAL: Denies fever, chills EYES: Denies visual changes, redness, or discharge. ENT: See HPI CARDIOVASCULAR: Denies chest pain, palpitations, or edema. RESPIRATORY: Denies cough or dyspnea. GASTROINTESTINAL: Denies abdominal pain, nausea, vomiting, or diarrhea. GENITOURINARY: Denies dysuria or hematuria. SKIN: Denies rash or itching. MUSCULOSKELETAL: Denies back pain, joint pain, or myalgia. NEUROLOGIC: Denies headache, numbness, dizziness, or weakness. PSYCHIATRIC: Denies anxiety or depression. <Lindsay Sheppard PA-C - Last Filed: 08/26/23 12:02> [facility] Past Medical History Medical History: Medical History Anxiety Depression Pain during labor depression <Lindsay Sheppard PA-C - Last Filed: 08/26/23 12:02> Surgical History Surgical History: Surgical History No history of previous surgery <Lindsay Sheppard PA-C - Last Filed: 08/26/23 12:02> Social History Social History: Social History Smoking packs per day: 0.5 Smoking cigarettes per day: 10.0 Smoking status: Current every day smoker Tobacco type: cigarettes Second hand tobacco smoke exposure: Yes Additional smoking assessment comments: 1-2 cigs a day Substance use: former Spiritual care concerns: No <Lindsay Sheppard PA-C - Last Filed: 08/26/23 12:02> Exam Narrative: GENERAL: Well-appearing, in no acute distress. Patient resting comfortably in exam bed. HEAD: Normocephalic EYES: PERRLA ENT: Nares clear. Mucous membranes moist. Bilateral TMs are antonio nonbulging. Normal canals. Dental caries and fractures throughout mouth, especially in the right lower mandible. There is active purulent drainage to the base of #27 without fluctuance. Floor of mouth is soft without crepitus. There is facial swelling over the right mandible with induration. No erythema or fluctuance. No trismus. Patient tolerating secretions. No difficulty swallowing. NECK: Supple. CHEST: No respiratory distress. Clear to auscultation, no adventitious breath sounds. HEART: Regular rate and rhythm. No murmur heard. Normal peripheral pulses. EXTREMITIES: Normal range of motion. No edema. SKIN: Warm, dry, no rash. NEURO: No focal deficits. Alert and oriented x3. PSYCH: Normal mood and affect.
[2023-08-26] MEDS: HYDROcodone/acetaminophen (*CRX) 5-325 MG TABLET 1 TAB PO (12:18)
[2023-08-26] MEDS: AMOXICILLIN/CLAVULANATE K 875-125 MG TAB 1 TABLET PO (12:18)
== END 2023-08-26 12:22 | disposition home or self-care (01) ==
PROVIDERS: Emergency Provider Physician Assistant; PCP Registered Nurse
DX: K02.9 Dental caries, unspecified (principal); K04.7 Periapical abscess without sinus; S02.5XXA Fracture of tooth (traumatic), initial encounter for closed fracture; F17.210 Nicotine dependence, cigarettes, uncomplicated; X58.XXXA Exposure to other specified factors, initial encounter
CPT/HCPCS: 99283; A9270

== ENCOUNTER 2024-02-13 12:29 | Emergency (ER) | payer OTHER, SELFPAY ==
--- NOTE | ~2024-02-13 | CT_ITS ---
EXAMINATION: CT abdomen pelvis w con DATE: 02/13/2024 14:11 INDICATION: Diffuse abdominal pain, nausea, vomiting and diarrhea TECHNIQUE: Computed tomography (CT) of the abdomen and pelvis was performed with 100 cc Omnipaque 350 intravenous contrast. The dose-length product was 772.69 mGy-cm. Automated exposure control and iter ative reconstruction technique were employed. COMPARISON: None. FINDINGS: There is fluid throughout the stomach and small bowel to the ileocecal junction, most likel y ileus. There is debris in the stomach. Lung bases unremarkable. Heart size normal. No significant pleural or pericardial effusion. The liver , spleen, pancreas, adrenal glands and kidneys are unremarkable. Gallbladder is present. No free air or free fluid. No lymphadenopathy. No significant vascular abnormality. No acute osseous abnormality. IMPRESSION: 1. Fluid-filled stomach and small bowel without definite transition site, most likely ileus. Reviewed, dictated and finalized at location B.
[2024-02-13 12:42] VITALS: BP 119/96; PULSE 80; RESP 18; TEMP 36.1; O2SAT 100
--- NOTE | 2024-02-13 12:48 | ED.ABDPAIN ---
HPI - Abdominal Pain General Chief Complaint: Abdominal Pain <WAYNE Vallejo Last Filed: 02/13/24 12:55> Stated Complaint: abdominal pain <WAYNE Vallejo Last Filed: 02/13/24 12:55> Time Seen by Provider: 02/13/24 12:48 <WAYNE Vallejo Last Filed: 02/13/24 12:55> Focused HPI: Patient is a 38 y/o female who presents to the ED with c/o abdominal pain, N/V/D. Patient reports having sx's since this morning. C/o diffuse abdominal pain, nausea with 1 episode of emesis, diarrhea that is yellow/green in color, foul smelling belching. States she does still feel nauseous currently. Reported having similar sx's last week, lasted for 3 days before resolving. Denies family members with similar sx's. Denies fevers, rectal bleeding, melena, urinary complaints. Does report her son's father recently cheated on her. Would like to be tested for STDs. Denies vaginal discharge/bleeding, genital lesions. GENERAL: Well-appearing, well-nourished, and in no acute distress. HEAD: Normocephalic, atraumatic. CHEST: Clear to auscultation. ?No respiratory distress. HEART: Regular rate and rhythm.? ABD: Diffuse tenderness to palpation. No rebound. Normoactive BS. NEURO: ?Alert and oriented x3. Patient screened in triage and initial orders placed.? ?Additional care and disposition to be based upon?diagnostic testing and treatment. <WAYNE Vallejo Last Filed: 02/13/24 12:55> Source: patient <WAYNE Vallejo Last Filed: 02/13/24 12:55> Mode of arrival: ambulatory <WAYNE Vallejo Last Filed: 02/13/24 12:55> Limitations: no limitations <WAYNE Vallejo Last Filed: 02/13/24 12:55> History of Present Illness HPI narrative: 38-year-old female presenting to the emergency department for evaluation of persistent nausea vomiting diarrhea and diffuse abdominal pain that started this morning. <Paul Garcia MD - Last Filed: 02/18/24 07:49> Related Data Allergies/Adverse Reactions: Allergies Allergy/AdvReac Type Severity Reaction Status Date / Time latex Allergy Intermediate rash with Verified 02/13/24 12:29 latex gloves Sulfa (Sulfonamide Allergy Mild BLISTERS Verified 02/13/24 12:29 Antibiotics) AND RASH venlafaxine [From Effexor] Allergy Other Verified 02/13/24 12:29 <Lynne Miramontes PA-C - Last Filed: 02/13/24 12:55> Review of Systems Review of Systems: All systems reviewed & are unremarkable except as noted in HPI and below <Paul Garcia MD - Last Filed: 02/18/24 07:49> PMFSH Past Medical History Medical History: Medical History Anxiety Depression Pain during labor depression <Lynne Miramontes PA-C - Last Filed: 02/13/24 12:55> Surgical History Surgical History: Surgical History No history of previous surgery <Lynne Miramontes PA-C - Last Filed: 02/13/24 12:55> Social History Social History: Social History Smoking packs per day: 0.5 Smoking cigarettes per day: 10.0 Smoking status: Current every day smoker Tobacco type: cigarettes Second hand tobacco smoke exposure: Yes Additional smoking assessment comments: 1-2 cigs a day Substance use: former Spiritual care concerns: No <Lynne Miramontes PA-C - Last Filed: 02/13/24 12:55> Exam Narrative: APPEARANCE: Well appearing, no pain, no distress, well-nourished. HEAD: normocephalic, atraumatic. EYES: PERRLA/EOMI, conjunctivae clear. NOSE: Normal no drainage EARS:TMS clear with good light reflex. THROAT: Pharynx clear, no exudate. NECK: Supple. No adenopathy, no masses. RESPIRATORY: Airway patent, respirations nonlabored. Clear to auscultation bilaterally, no rales, rhonchi, wheezing. CARDIOVASCULAR
[2024-02-13] MEDS: BELLADONNA ALK/PHENOB ELIX 10 ML, MAG HYDROX/ALUMINUM HYD/SIMETH 30 ML, LIDOCAINE HCL 2... PO (13:15)
[2024-02-13] MEDS: ONDANSETRON HCL ODT 4 MG TABLET PO (13:16)
[2024-02-13] MEDS: ACETAMINOPHEN 500 MG TABLET 1000 MG PO (13:16)
[2024-02-13 13:37] LABS: Basophils Absolute Auto 0.1 K/mm3 (0.0-0.1); Basophils Percent Auto 0.3 % (0.2-1.2); Eosinophils Absolute Auto 0.1 K/mm3 (0-0.3); Eosinophils Percent Auto 0.7 % (0-4.4); Hematocrit 46.3 % (37.0-47.0); Hemoglobin 14.5 g/dL (12.0-15.0); Immature Granulocyte Absolute 0.09 K/mm3 (0.00-0.031); Immature Granulocyte Percent A 0.6 % (0-0.5); Lymphocytes Absolute Auto 1.35 K/mm3 (0.9-3.2); Lymphocytes Percent Auto 8.9 % (18.3-44.2); Mean Corpuscular HGB Conc 31.3 g/dl (32-36); Mean Corpuscular Hemoglobin 27.7 pg (26-34); Mean Corpuscular Volume 88.4 fl (80-100); Mean Platelet Volume 10.5 fl (7.4-10.4); Monocytes Absolute Auto 0.7 K/mm3 (0.1-0.6); Monocytes Percent Auto 4.8 % (2.6-8.5); Neutrophils Absolute Auto 12.9 K/mm3 (1.3-6.7); Neutrophils Percent Auto 84.7 % (45.5-73.1); Platelet Count Result 358 k/mm3 (150-375); Red Blood Count 5.24 M/mm3 (4.2-5.4); Red Cell Distribution Width 14.5 % (11.5-14.5); White Blood Count 15.2 K/mm3 (4.5-10.0)
[2024-02-13 13:53] LABS: Alanine Aminotransferase 25 U/L (6-35); Alkaline Phosphatase 81 U/L (38-126); Anion Gap 12 mmol/L (4-12); Aspartate Amino Transferase 21 U/L (14-36); Bilirubin,Total 0.5 mg/dL (0.2-1.3); Blood Urea Nitrogen 16 mg/dL (7-17); Calcium 10.5 mg/dL (8.4-10.2); Carbon Dioxide 20 mmol/L (22-30); Chloride 108 mmol/L (98-107); Estimated CRCL calculation 64 ml/min; Estimated Glomerular Filt Rate 50; Glucose 115 mg/dL (65-110); Lipase 42 U/L (23-300); Potassium 4.7 mmol/L (3.4-5.0); Sodium 140 mmol/L (137-145)
[2024-02-13 14:03] LABS: Estimated CRCL calculation 64 ml/min; Estimated Glomerular Filt Rate 50
[2024-02-13] MEDS: SODIUM CHLORIDE 0.9% IV 1,000 ML 999 ML IV CONT (14:21)
[2024-02-13 14:23] LABS: Add Urine Microscopic? YES
[2024-02-13 14:24] LABS: Appearance Urine Cloudy (Clear); Bilirubin Urine 3+ (Negative); Blood Urine Trace-intact (Negative); Color Urine Yellow (Yellow); Glucose Urine UA Negative (Negative); Ketones Urine 1+ mg/dL (Negative); Leukocyte Esterase Ur 1+ LEU/UL (Negative); Nitrate Urine Negative (Negative); Protein Urine 3+ mg/dL (Negative); Specific Grav Ur >= 1.030 (1.001-1.035); pH Urine 5.5 (5.0-9.0)
[2024-02-13 14:26] LABS: Squamous Epithelial Cell Urine Many /hpf (Few)
[2024-02-13 14:59] LABS: Toxigenic C. Diff NEGATIVE (NEGATIVE)
[2024-02-13 15:42] LABS: Trichomonas Vag PCR NOT DETECTED (NOT DETECTE)
[2024-02-13 16:07] LABS: Chlamydia trachomatis NOT DETECTED (NOT DETECTE); Neisseria gonorrhoeae PCR NOT DETECTED (NOT DETECTE)
[2024-02-13 17:11] VITALS: BP 145/68; PULSE 80; RESP 16; O2SAT 99
== END 2024-02-13 17:12 | disposition home or self-care (01) ==
PROVIDERS: Physician Assistant; Emergency Provider Emergency Medicine; PCP Registered Nurse
DX: K56.7 Ileus, unspecified (principal); F17.210 Nicotine dependence, cigarettes, uncomplicated
CPT/HCPCS: 36415; 74177; 80053; 81001; 81025; 83690; 85025; 87045; 87086; 87088; 87427; 87449; 87491; 87493; 87591; 87661; 96360; 99284; A9270; J7030; Q9967

== ENCOUNTER 2024-03-27 01:32 | Emergency (ER) | payer OTHER, SELFPAY ==
[2024-03-27 01:31] VITALS: PULSE 73; RESP 15; TEMP 37.4; O2SAT 97
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
[2024-03-27 02:18] VITALS: BP 104/60
== END 2024-03-27 02:21 ==
PROVIDERS: Emergency Provider Physician Assistant; PCP Registered Nurse
DX: T59.3X1A Toxic effect of lacrimogenic gas, accidental (unintentional), initial encounter (principal); H57.89 Other specified disorders of eye and adnexa; F17.210 Nicotine dependence, cigarettes, uncomplicated; Y35.893A Legal intervention involving other specified means, suspect injured, initial encounter
CPT/HCPCS: 99283; J7030

== ENCOUNTER 2024-05-06 13:08 | Emergency (ER) | payer OTHER, SELFPAY ==
[2024-05-06 13:29] VITALS: BP 126/80; PULSE 73; RESP 18; TEMP 36.6; O2SAT 99
--- NOTE | 2024-05-06 14:21 | ED.URI ---
HPI - URI/Sore Throat General Chief Complaint: Upper Respiratory Infection Stated Complaint: flu symptoms Time Seen by Provider: 05/06/24 13:46 History of Present Illness HPI Narrative: Patient is a 38 year female who presents ER with cold symptoms. Ongoing for last week. She caught it from her son. Reports sinus congestion with sore throat and cough. No chest pain or chest pressure. Mild fatigue. Low-grade temps at home. Related Data Allergies Allergy/AdvReac Type Severity Reaction Status Date / Time latex Allergy Intermediate rash with Verified 02/13/24 12:29 latex gloves Sulfa (Sulfonamide Allergy Mild BLISTERS Verified 02/13/24 12:29 Antibiotics) AND RASH venlafaxine [From Effexor] Allergy Other Verified 02/13/24 12:29 Review of Systems Constitutional: Constitutional: Reports fatigue and Reports fever(s) ENT: Reports nasal congestion and Reports sore throat Cardiovascular: Cardiovascular: Reports no additional cardiovascular complaints Respiratory: Respiratory: Reports cough, Denies dyspnea and Denies wheezing PMFSH Past Medical History Medical History Anxiety Depression Pain during labor depression Surgical History Surgical History No history of previous surgery Social History Social History Smoking packs per day: 0.5 Smoking cigarettes per day: 10.0 Smoking status: Current every day smoker Tobacco type: cigarettes Second hand tobacco smoke exposure: Yes Additional smoking assessment comments: 1-2 cigs a day Substance use: former Spiritual care concerns: No Exam Narrative: GENERAL: Well-appearing, well-nourished, and in no acute distress. HEAD: Normocephalic, atraumatic. ENT: Mucous membranes moist. CHEST: Clear to auscultation. No respiratory distress. HEART: Regular rate and rhythm. Normal peripheral pulses. EXTREMITIES: Normal range of motion. No edema. SKIN: Warm, dry, no rash. NEURO: Alert and oriented x3. PSYCH: Normal mood and affect. Course Course Emergency Course: Patient with URI. COVID/flu/RSV negative. Vital Signs Vital signs: Vital Signs Temperature 97.9 F 05/06/24 13:29 Pulse Rate 73 05/06/24 13:29 Respiratory Rate 18 05/06/24 13:29 Blood Pressure 126/80 05/06/24 13:29 Pulse Oximetry 99 05/06/24 13:29 Temperature 97.9 F 05/06/24 13:29 Pulse Rate 73 05/06/24 13:29 Respiratory Rate 18 05/06/24 13:29 Blood Pressure 126/80 05/06/24 13:29 Pulse Oximetry 99 05/06/24 13:29 MDM - URI/Sore Throat Lab Data Labs: Lab Results 05/06/24 Range/Units 14:09 Influenza A (RT-PCR) Negative (Negative) Influenza B (RT-PCR) Negative (Negative) RSV (RT-PCR) Negative (Negative) SARS-CoV-2 RNA (RT-PCR) Negative (Negative) Discharge Plan Discharge Clinical Impression: Viral infection Patient Disposition: Home, Self-Care Condition: Stable Instructions: Viral Syndrome (ED) Additional Instructions: As discussed you have a viral illness. Unfortunately there are no specific medications we can give you to make the illness end faster. Antibiotics do not work for viral illnesses. However, you can take Acetaminophen or Ibuprofen to help with fevers and pain. Stay well hydrated and rested. Return to the emergency department if your fevers and chills continue to worse after 5 days, if you develop worsening cough with thick sputum, or are unable to stay hydrated. Contact your primary care provider in the next few days for a re-evaluation and to make sure your symptoms are improving. Prescriptions: New guaifenesin [Mucus Relief ER] 600 mg tablet extended release 12hr 600 mg PO BID Qty: 14 0RF Saline Nasal Mist 3 % mist 1 spray intranasal QID Qty: 126 0RF No Action fluticasone p
[2024-05-06 14:54] LABS: Influenza A QL RT-PCR Negative (Negative); Influenza B QL RT-PCR Negative (Negative); RSV RNA, RT-PCR Negative (Negative); SARS-CoV-2 RNA PCR Negative (Negative)
== END 2024-05-06 15:26 | disposition home or self-care (01) ==
PROVIDERS: Emergency Medicine; Emergency Provider Emergency Medicine; PCP Registered Nurse
DX: B34.9 Viral infection, unspecified (principal); F17.210 Nicotine dependence, cigarettes, uncomplicated; Z20.822 Contact with and (suspected) exposure to COVID-19
CPT/HCPCS: 87637; 99283

== ENCOUNTER 2025-02-13 11:03 | Emergency (ER) | payer OTHER, SELFPAY ==
--- NOTE | ~2025-02-13 | XR_ITS ---
Clinical Indication: Cough PA and lateral views of the chest: Comparison: None Findings: The lungs are clear, without evidence of focal consolidation or pleural effusion. Cardiome diastinal silhouette is within normal limits. Bones and soft tissues are unremarkable. Impression: Normal chest. Reviewed, dictated and finalized at location . Impression: Normal chest.
[2025-02-13 11:10] VITALS: BP 106/70; PULSE 76; RESP 20; TEMP 36.9; O2SAT 97
[2025-02-13 12:06] VITALS: O2SAT 97
--- OUTSIDE RECORDS SUMMARY | 2025-02-13 12:26 | XMS_ITS | Clinical Summary ---
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 Gender Identity Not on file Sexual Orientation Not on file Obstetrics History Para Term AB IAB SAB Ectopic Multiple Livin g Live Births 1 Date Outcome GA Total Labor Labor/2nd/3rd Weight Sex Type Anes PTL Aidee A1 A5 Name Clin Last Filed Vital Signs Vital Sign Reading Time Taken Comments Blood Pressure 108/58 04/07/2021 7:00 AM CDT Pulse 80 04/07/2021 7:00 AM CDT Temperature 36.9 C (98.5 F) 04/07/2021 1:44 AM CDT Respiratory Rate 19 04/07/2021 7:00 AM CDT Oxygen Saturation 100% 04/07/2021 7:00 AM CDT Inhaled Oxygen Concentration - - Weight 74.8 kg (164 lb 14.5 oz) 04/07/2021 1:44 AM CDT Height 162.6 cm (5' 4 ) 04/07/2021 1:44 AM CDT Body Mass Index 28.31 04/07/2021 1:44 AM CDT Plan of Treatment Not on file Insurance [employer]ETNA [facility]TER [facility] [place] Care Teams Analysis Reporting Developer Relationship Specialty Start Date End Date Murali Stewart MD PCP - General Emergency Medicine 04/07/21
--- OUTSIDE RECORDS SUMMARY | 2025-02-13 12:26 | XMS_ITS | Clinical Summary ---
Author Organization [facility] Address [facility] [place] [address] Care Team Providers Care County Adviser Name Role Phone Tess Vasquez CIRILO Primary Care Provider Allergies Active Allergy Reactions Criticality Noted Date Comments Venlafaxine Other (see comment) 04/14/2022 Schizophrenia symptoms. Makes her feel this way. Sulfa Antibiotics Contact Dermatitis 09/16/2022 Highly allergic to sulfas. Blisters! Sulfamethoxazole-Trimet hoprim Contact Dermatitis 04/14/2022 Medications 27-1 MG tablet Take 1 tablet by mouth daily. 1 Active fluticasone propionate 50 MCG/ACT nasal spray INSTILL 1 SPRAY INTO EACH NOSTRIL ONCE A DAY 2 Active predniSONE (DELTASONE) 20 MG tabletIndication s:Pharyngitis, unspecified etiology Take two tabs once daily for 3 days 6 tablet 2 Active Additional Information Patient not taking.Reported on 11/18/2022 HYDROcodone-acet aminophen (NORCO) 10-325 MG tabletIndication s:Acute Pain < 7 Day Supply Indications: Acute Pain < 7 Day Supply Take 1/2 tablet every 8 hours as needed for pain. 5 tablet 3 Active Active Problems Problem Noted Date Diagnosed Date History of depression 04/14/2022 BMI 34.0-34.9,adult 04/14/2022 Anxiety 04/14/2022 Current every day smoker 04/14/2022 Immunizations Immunization Administration Dates Next Due HPV4 (Gardasil) 01/19/2008 Influenza (Generic) 07/14/2024 Tdap (Generic) 07/05/2021 Family History Medical History Relation Comments Diabetes Brother Pancreatitis Brother Cancer Father Heart Attack Maternal Grandfather Heart Attack Maternal Grandmother carotid artheries Mother Cancer Paternal Grandmother No Known Problems Son Relation Status Comments Brother Alive Father Alive Maternal Grandfather Maternal Grandmother Mother Alive Paternal Grandfather Paternal Grandmother Son Alive Social History Tobacco Use Types Packs/Day Years Used Date Smoking Tobacco: Some Days Cigarettes 0.3 15 Smokeless Tobacco: Never Tobacco Cessation:Ready to Q uit: No; Counseling Given: Yes Comments:Provider can provide counseling to patient Alcohol Use Standard Drinks/Week Comments Not Currently 0 (1 standard drink = 0.6 oz pure alcohol) in the past. Pt quit drinking PHQ-2 Answer Date Recorded PHQ-2 Score - If the patient scores above 3, please move on to questions 3-9 1 04/14/2022 Comments No Sex and Gender Information Value Date Recorded Sex Assigned at Not on file Legal Sex Female 8:12 PM CDT Gender Identity Not on file Sexual Orientation Not on file Last Filed Vital Signs Vital Sign Reading Time Taken Comments Blood Pressure 108/71 10/15/2022 2:11 PM PRINCIPAL SECURITY ARCHITECT Pulse 80 10/15/2022 2:11 PM PRINCIPAL SECURITY ARCHITECT Temperature 36.7 C (98.1 F) 10/15/2022 2:11 PM PRINCIPAL SECURITY ARCHITECT Respiratory Rate 16 10/15/2022 2:11 PM PRINCIPAL SECURITY ARCHITECT Oxygen Saturation 100% 10/15/2022 2:11 PM PRINCIPAL SECURITY ARCHITECT Inhaled Oxygen Concentration - - Weight 95.7 kg (211 lb) 10/15/2022 2:11 PM PRINCIPAL SECURITY ARCHITECT Height 162.6 cm (5' 4 ) 10/15/2022 2:11 PM PRINCIPAL SECURITY ARCHITECT Body Mass Index 36.22 10/15/2022 2:11 PM PRINCIPAL SECURITY ARCHITECT Plan of Treatment Health Maintenance Due Date Last Done Comments Annual Physical 1988 Hepatitis B Vaccines (1 of 3 - 19+ 3-dose series) 2004 Pneumococcal Vaccine: Pediatrics (0 to 5 Years) and At-Risk Patients (6 to 49 Years) (1 of 2 - PCV) 2004 HPV Vaccines (2 - 3-dose series) 02/16/2008 01/19/2008 PHQ-2 (Physician [place]) 10/17/2024 Cervical Cancer Screening Pa p Smear (Age 30 to 64) Every 3 Years 09/16/2025 09/16/2022 Cervical Cancer Screening Pa p with HPV Testing (Age 30 to 64) Every 5 Years 09/16/2027 09/16/2022 Cervical Cancer Screening wi th HPV 09/16/2027 DTaP, Tdap and Td Vaccines ( 2 - Td or Tdap) 07/05/2031 07/05/2021 Hepatitis C Completed 09/16/2022 COVID-19 Vaccine Completed 07/14/2024, 05/27/2021, 04/23/2021 Meningococcal B Vaccine Aged Out No l onger eligible based on patient's age to complete this topic Meningococcal Vaccine Aged Out No nawaf shireen eligible based on patient's age to complete this topic RSV Immunizations Under 20 Months Aged Out No longer eligible b ased on patient's age to complete this topic Procedures Procedure Name Priority Date/Time Associated Diagnosis Comments HEPATITIS C ANTIBODY Routine 09/16/2022 12:20 PM PRINCIPAL SECURITY ARCHITECT Unprotected sex Vaginal discharge HPV MRNA E6/E7 Routine 09/16/2022 11:17 AM PRINCIPAL SECURITY ARCHITECT CYTOPATH CERV/VAG THIN LAYER Routine 09/16/2022 11:17 AM PRINCIPAL SECURITY ARCHITECT Encounter for well woman exam from Last 3 Months or Most Recently Relevant to Health Maintenance Results * HEPATITIS C ANTIBODY ([facility] ONLY) (09/16/2022 12:20 PM PRINCIPAL SECURITY ARCHITECT) HEPATITIS C AB NON-REACTI VE NON-REACT [place] 09/16/2022 10:01 PM PRINCIPAL SECURITY ARCHITECT [facility] Comment: ANTIBODIES TO HCV NOT DETECTED. DOES NOT EXCLUDE THE POSSIBILITY OF EXPOSURE TO HCV. 09/16/2022 12:2 0 PM PRINCIPAL SECURITY ARCHITECT Tess KERR LABORATORY Final Resul t [facility] [address] [place] [address], [id number] * HPV MRNA E6/E7 (09/16/2022 11:17 AM PRINCIPAL SECURITY ARCHITECT) Pathologist [facility] HPV MRNA E6/E7 Not Detected Not Detected [facility] Comment: Methodology: Direct Marketing Intern-Mediated Amplification This assay detects E6/E7 viral messenger RNA (mRNA) from 14 high-risk HPV types (16,18,31,33,35,39,45,51,52,56,58,59,66,68). Cervical sources are required for HPV testing. If a vaginal source from a patient who has had a total hysterectomy with removal of cervix was submitted, please contact the testing laboratory for alternative testing options. For additional information, please refer to http://education.YouChe.com/faq/GEM971l8 (This link if provided for information/ educational purposes only.) 09/16/2022 11:1 7 AM PRINCIPAL SECURITY ARCHITECT 09/17/2022 12:30 AM PRINCIPAL SECURITY ARCHITECT Narrative Resulting Agency Comment Performing Organization Information: Site ID: [place] Name: [facility] Address: [address] [place], [place] [address] [place] [address] Director: Param Ramirez D.O., MPH Tess KERR PATHOLOGY/CYTOLOGY ORDERABL ES Final Result D and K interprises [facility] [id number] [place] [address] [place] [address], * Cytopath Cerv/Vag Thin Layer (09/16/2022 11:17 AM PRINCIPAL SECURITY ARCHITECT) CLINICAL INFORMATION: Routine exam [place] Clinical Information: 08/30/2022 [place] Date of Last Pap NONE GIVEN [employer] [place] Previous Biopsy? NONE GIVEN [employer] [place] SOURCE (QST) Cervix, Endocervix [facility] [employer] [place] STATEMENT OF ADEQUACY: [facility] [employer] [place] Comment: Satisfactory for evaluation. Endocervical/transformation zone component present. PAP INTERPRETATION/RESU LTS Negative for intraepithelial lesion or malignancy. [place] INFECTION: Shift in vaginal sanjuana suggestive of bacterial vaginosis. [facility] [place] [facility] [place] Comment: LM, CT(ASCP) CT screening location: [facility] [address] [address] [place] [address] COMMENT: [facility] [place] Comment: EXPLANATORY NOTE: The Pap is a screening test for cervical cancer. It is not a diagnostic test and is subject to false negative and false positive results. It is most reliable when a satisfactory sample, regularly obtained, is submitted with relevant clinical findings and history, and when the Pap result is evaluated along with historic and current clinical information. 09/16/2022 11:1 7 AM PRINCIPAL SECURITY ARCHITECT 09/17/2022 12:30 AM PRINCIPAL SECURITY ARCHITECT Narrative Resulting Agency Comment Performing Organization Information: Site ID: [place] Name: [facility] Address: [facility] [place] [address] Director: Tara Arellano us Tess KERR PATHOLOGY/CYTOLOGY ORDERABL ES Final Result D and K interprises [facility] - [facility] [address], from Last 3 Months or Most Recently Relevant to Health Maintenance Insurance [facility] Care Teams County Adviser Relationship Specialty Start Date End Date Tess Vasquez APNP [address] [place] [id number] PCP - General NURSE PRACTITIONER 04/14/22
--- OUTSIDE RECORDS SUMMARY | 2025-02-13 12:26 | XMS_ITS | Clinical Summary ---
Author Organization [facility] Address [address] [facility] [place] [address] Phone Care Team Providers Care Shade Maker Name Role Phone Gabino Wilson MD Primary Care Provider [phone] Medications vitamin-iron fumarate-folic acid 27 mg-0.8 mg Tablet Take 1 Tablet by mouth daily. 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 Gender Identity Not on file Sexual Orientation Not on file Last Filed Vital Signs Vital Sign Reading Time Taken Comments Blood Pressure 118/46 11/14/2020 8:16 PM AUTOMOBILE ASSEMBLER Pulse 72 11/14/2020 8:16 PM AUTOMOBILE ASSEMBLER Temperature 36.4 C (97.5 F) 11/14/2020 8:16 PM AUTOMOBILE ASSEMBLER Respiratory Rate 20 11/14/2020 8:16 PM AUTOMOBILE ASSEMBLER Oxygen Saturation 98% 11/14/2020 8:16 PM AUTOMOBILE ASSEMBLER Inhaled Oxygen Concentration - - Weight 72.6 kg (160 lb) 11/14/2020 8:16 PM AUTOMOBILE ASSEMBLER Height 154.9 cm (5' 1 ) 11/14/2020 8:16 PM AUTOMOBILE ASSEMBLER Body Mass Index 30.23 11/14/2020 8:16 PM AUTOMOBILE ASSEMBLER Plan of Treatment Health Maintenance Due Date Last Done Comments DTAP/TDAP/TD VACCINES (1 - Tdap) 2004 HEPATITIS B VACCINES (1 of 3 - 19+ 3-dose series) 2004 HPV/Cotest (21-29) 2006 CERVICAL CANCER SCREENING 2015 HPV/Cotest (30-65) 2015 PAP SMEAR 2015 INFLUENZA VACCINE (#1) 2024 HPV VACCINES Aged Out No longer eligi ble based on patient's age to complete this topic Insurance [facility] MEDICAID Care Teams Shade Maker Relationship Specialty Start Date End Date Gabino Wilson MD [address] [place] [phone] PCP - General Family Practice 11/14/20
--- OUTSIDE RECORDS SUMMARY | 2025-02-13 12:26 | XMS_ITS | Data Portability ---
Author Organization [facility] Address [address] [place] [address] Assessment No assessment recorded. Plan of Treatment Reminders Order Date Submit Date Provider Last Modified By Organization Details Last Modified Time Details Appointments None recorded. Lab beta-HCG, quantitativ e, serum or plasma 2021 Company [facility], [address] [place], [address], 14:17:29 abo group + rh type, blood 2021 Company [facility], [address] [place], [address], 14:17:30 RPR (rapid plasma reagin), serum 2021 Company [facility], [address] [place], [address], 14:17:30 hepatitis C virus Ab, serum 2021 Company [facility], [address] [place], [address], 14:17:29 CT + NG DNA, PCR, unspecified specimen 2021 DEE D[facility], [address] [place] [address], [address], 17:41:53 HIV 1+2 Ab + HIV1 p24 Ag, quantitativ e immunoassay , serum 2021 022 [place] [facility], [address] [facility], [place], [address], 14:17:29 Referral None recorded. Procedures None recorded. Surgeries None recorded. Imaging None recorded. Medication Orders None recorded. Patient TargetsNo targets recorded. Patient InstructionsNo instructions recorded. Reason for Referral None Reported. Results Created Date Observation Date Name Description Value Unit Range Abnormal Flag Note LastModifiedBy Organization Detail LastModifiedTime 07/08/20 22 07/09/2022 CT/NG chlamydia trachomatis CT neg negati ve normal This repor t is inten ded for us in clini barby monit oring and manag ement of patie nts. It is not inten ded for use in medic al-le gal appli catio n. Not Available [address], [address], 07/09/2022 17:41:53 07/08/20 22 07/09/2022 CT/NG neisseria gonorrhoeae GC neg negati ve normal This repor t is inten ded for us in clini barby monit oring and manag ement of patie nts. It is not inten ded for use in medic al- gal appli catio n. Not Available [address], [address], 07/09/2022 17:41:53 07/08/20 22 07/12/2022 HEPAT ITIS C AB W/REF L TO HCV RNA, QN, PCR hepatitis C antibody NON-RE ACTIVE non-re active normal Not Available [facility] [address] [place], [address], 07/12/2022 14:17:28 07/08/20 22 07/12/2022 HEPAT ITIS C AB W/REF L TO HCV RNA, QN, PCR index 0.01 <1.00 normal HCV antib kash was non-r eacti ve. There is no labor atory evide nce of HCV infec tion. In most cases , no furth er actio n is requi red. Howev er, if recen t HCV expos ure is suspe cted, a test for HCV RNA (test code 59660 ) is sugge sted. For addit ional infor matio n pleas e refer to http: //[facility] stdia gnost ics.c om/fa q/FAQ 22v1 (This link is being provi ded for infor matio nal/ educa iain l purpo ses only. ) Not Available [facility] [address] [place], [address], 07/12/2022 14:17:28 07/08/2007/12/2022 HIV 1/2 ANTIG EN/AN TIBOD Y,FOU RTH GENER ATION W/RFL HIV Ag/Ab, 4TH gen NON-RE ACTIVE non-re active normal HIV-1 antig en and HIV-1 /HIV- 2 antib odies were not detec fam. There is no labor atory evide nce of HIV infec tion. PLEAS E NOTE: This infor matio n has been discl osed to you from recor ds whose confi denti ality may be prote cted by state law. If your state requi res such prote ction , then the state law prohi bits you from onel anders furth er discl osure of the infor matio n witho ut the speci fic writt en conse nt of the perso n to whom it perta ins, or as other ernst permi tted by law. A gener al autho rizat ion for the relea se of medic al or other infor matio n is NOT suffi cient for this purpo se. For addit ional infor matio n pleas e refer to http: //[facility] stdia gnost ics.c om/fa q/FAQ 106 (This link is being provi ded for infor matio nal/ educa iain l purpo ses only. ) The perfo rmanc e of this assay has not been clini myesha valid ated in patie nts less than 2 years old. Not Available [facility] [address] [place], [address], 07/12/2022 14:17:29 07/08/2007/12/2022 HCG, TOTAL , QN HCG, total, qn 86 mIU/m L high Refer ence Range Nonpr egnan t or preme nopau bernard <5 Postm enopa usal <10 Value s from diffe rent assay metho ds may vary. The use of this assay to monit or or to diagn ose patie nts with cance r or any condi tion unrel ated to pregn katharine has not been clear ed or appro luh by the FDA or the [facility] actur er of the assay . Not Available [facility] [address], [address], 07/12/2022 14:17:29 07/08/2007/12/2022 RPR (DX) W/REF L TITER AND CONFI RMATO RY TESTI NG RPR (DX) w/refl titer and confirmatory testing NON-RE ACTIVE non-re active normal Not Available [facility] [address] [place], [address], 07/12/2022 14:17:30 07/08/2007/12/2022 ABO GROUP AND RH TYPE ABO group A Not Available [facility] [address], [address], 07/12/2022 14:17:30 07/08/2007/12/2022 ABO GROUP AND RH TYPE Rh type RH(D) POSITI VE For addit ional infor andreina hayes e refer to http: //[facility] maxime nuñez.Que stDia gnost ics.c om/fa q/FAQ 111 (This link is being provi ded for infor debbie villavicencio/ dar kim purpo ses only. ) Not Available [facility] [address] [place], [place] [address], [place], [address], 07/12/2022 14:17:30 07/09/2007/08/2022 US, trans vagin al No observ ation record ed. [email or web address] [address], [place], [address], 07/09/2022 15:04:59 Result Notes None recorded. Problems Name Problem SNOMED Code Status Onset Date Resolution Date Notes Provider Name and Address Organization Details Recorded Time Body mass index 30+ - obesity 956357167 Completed 202104/14/2022 Sandy Iniguez null, [facility] 15:57:17 History of depression 191318432 Active 2021 Sandy Iniguez null, [place] [facility] 15:57:17 Anxiety 64080593 Active 2021 Sandy Iniguez null, [facility] 15:57:17 Smokes tobacco daily 327101845 Completed 202104/14/2022 Sandy Iniguez null, [facility] 15:57:17 Problem Notes None recorded. Procedures Surgical History None recorded. Imaging Results Imaging Date Name Status LastModified by Organization Details LastModified Time 07/08/2022 US, transvaginal completed [facility] [address], [place], [address], 07/09/2022 15:04:59 Procedure Notes None recorded. Medical Equipment None Reported. Allergies Allergen ID Allergen Name Allergen Category Reaction Reaction Severity Criticality Documentation Date Start Date Code Code System Note Provider Name and Address Organization Details Recorded Time 724202 venlafaxi ne medicatio n other Not available Not available 07/08/20222021 58237 RxNorm Sandy Iniguez null, [facility] 15:57:17 Medications Name Sig Start Date Stop Date Status Note LastModified by Organization Details LastModified Time doxycycline hyclate 100 mg capsule TAKE 1 CAPSULE BY MOUTH TWICE A DAY FOR 10 DAYS 07/08 completed Not Available Not Available Not Available amoxicillin 875 mg tablet TAKE 1 TABLET BY MOUTH EVERY 12 HOURS UNTIL FINISHED 05/12 completed Not Available Not Available Not Available cephalexin 500 mg capsule TAKE 1 CAPSULE BY MOUTH TWICE A DAY FOR 7 DAYS 05/12 completed Not Available Not Available Not Available mupirocin 2 % topical ointment APPLY TO AFFECTED AREA TWICE A DAY FOR 7 DAYS 07/08 completed Not Available Not Available Not Available fluticasone propionate 50 mcg/actuati on nasal spray,suspe nsion INSTILL 1 SPRAY INTO EACH NOSTRIL ONCE A DAY 07/08 completed Not Available Not Available Not Available amoxicillin 875 mg-potassiu m clavulanate 125 mg tablet TAKE 1 TABLET BY MOUTH EVERY 12 HOURS 05/12 completed Not Available Not Available Not Available 11/05 (28) 1 mg-20 mcg (21)/75 mg (7) tablet TAKE 1 TABLET BY MOUTH EVERY DAY 05/12 completed Not Available Not Available Not Available nitrofurant oin monohydrate /macrocryst als 100 mg capsule TAKE 1 CAPSULE BY MOUTH EVERY 12 HOURS FOR 5 DAYS 05/12 completed Not Available Not Available Not Available 28 mg iron-800 mcg tablet TAKE 1 TABLET BY MOUTH EVERY DAY 05/12 completed Not Available Not Available Not Available Vitamins Plus Low Iron 27 mg iron-1 mg tablet TAKE 1 TABLET BY MOUTH EVERY DAY 05/12 completed Not Available Not Available Not Available Vitals Date Recorded Body weight Body mass index (BMI) Body height Body temperature Systolic blood pressure Diastolic blood pressure Provider Name and Address Organization Details Last Updated DateTime 2 85571.6 2 g 35.5 kg/m2 162.56 cm 97 [degF] 122 mm[Hg] 74 mm[Hg] Sandy Iniguez [facility] 2 16:07:04 Social History None recorded. Functional Status None recorded. Mental Status None recorded. Family History Nothing Reported. Medical History No medical history recorded. Gynecological HistoryNo gynecological history recorded. Obstetrics History GPAL:G 0 P 0 0 0 0 Immunizations Vaccine Type Date Status Note Provider Nam e and Address Organization Details Recorded Time Tdap 1 completed Sandy holbrook [facility] 07/08/2022 15:57:18 HPV, quadrivalent 8 completed Sandy holbrook [facility] 07/08/2022 15:57:18 Past Encounters Encounter ID Performer Location Encounter Start Date Encounter Closed Date Diagnosis/Indication Diagnosis SNOMED-CT Code Diagnosis ICD10 Code Diagnosis Note [id number] Bruna Weir CNM [facility] [address] [place] [address] 07/08/2022 15:11:42 07/09/2022 09:58:17 Complete miscarriage 329978266 O03.9 discussed after care. Declines contracept ion. May need rhogam and desires order to go to [facility] in [place]. Health Concerns Section Related Observation LastModified by Organization Detai ls LastModified Time None Recorded Concern Status LastModified by Organization Details LastModified Time None Recorded Advance Directives Directive None Recorded Payers Encounter Date Sequence Insurance Name Policy Number Policy Mcmahon Covered Member ID Mcmahon Member ID Guarantor Name 07/08/2022 1 [employer] [place] [employer] [place] OR AFTER 09/16/2020 (MEDICAID REPLACEMENT - HMO) Lynne Leiva [id number] Lynne Leiva Notes Date Note Type Note Provider Name and Address Organization Details Recorded Time 07/08/2022 text/html Generic HPI TemplateReported bypatient.Notes:States LMP was Eva. No bleeding until Tuesday. States there was passage of tissue. Bleeding today is menstrual like and cramping is manageable. Unsure of blood type- does not recall getting Rhogam with 1 year old. Desires STI testing. Miscarriage light bleeding now on Tuesday heavy bleeding started. Bruna Weir CNM [address] [facility], [place], [address], [facility] - [facility] 07/08/2022 17:44:19 OBGyn Episode No OBEpisode recorded.
--- OUTSIDE RECORDS SUMMARY | 2025-02-13 12:26 | XMS_ITS | Clinical Summary ---
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
--- OUTSIDE RECORDS SUMMARY | 2025-02-13 12:26 | XMS_ITS | CONTINUITY OF CARE DOCUMENT ---
Author Name becka becka Address Unknown Organization [facility] Address [address] [place] [address] [address] [place] [address] Phone [phone] Care Team Providers Care Supervisor Sewer Maintenance Name Role Phone Tye DOTSON, Baltazar Unavailable JOSEFINA DOTSON, HASMUKH Unavailable Unav ailable INSURANCE PROVIDERS Payer name Policy type / Coverage type [place] red green party ID [id number] PAY
--- OUTSIDE RECORDS SUMMARY | 2025-02-13 12:27 | XMS_ITS | Referral Summary ---
Author Organization [facility] Address [address] [place] [id number] Care Team Providers Care Manager Inside Name Role Phone Murali Stewart MD Primary Care Provider Allergies Active Allergy Reactions Criticality Noted Date Comments Sulfa (Sulfonamide Antibiotics) Blisters High 03/18 Social History Tobacco Use Types Packs/Day Years Used Date Smoking Tobacco: Never Assessed Comments Unknown Sex and Gender Information Value Date Recorded Sex Assigned at Not on file Legal Sex Female 1:17 PM DATABASE ENGINEER Gender Identity Not on file Sexual Orientation [...] of Treatment Not on file Insurance AETNA [facility] Care Teams Manager Inside Relationship Specialty Start Date End Date Murali Stewart MD PCP - General Emergency Medicine 04/07/21
[2025-02-13 13:02] LABS: Strep Group A RT-PCR NOT DETECTED (Negative)
[2025-02-13 13:18] LABS: Influenza A QL RT-PCR Negative (Negative); Influenza B QL RT-PCR Negative (Negative); RSV RNA, RT-PCR Negative (Negative); SARS-CoV-2 RNA PCR Negative (Negative)
--- OUTSIDE RECORDS SUMMARY | 2025-02-13 13:20 | XMS_ITS | Clinical Summary ---
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
--- OUTSIDE RECORDS SUMMARY | 2025-02-13 13:20 | XMS_ITS | Clinical Summary ---
Author Organization [facility] Address [facility] [place] [address] Care Team Providers Care Forest Practices Field Coordinator Name Role Phone Tess Vasquez CIRILO Primary Care Provider [phone] Allergies Active Allergy Reactions Criticality Noted Date [...] Comments Blood Pressure 108/71 10/15/2022 2:11 PM MORNING CAREGIVER Pulse 80 10/15/2022 2:11 PM MORNING CAREGIVER Temperature 36.7 C (98.1 F) 10/15/2022 2:11 PM MORNING CAREGIVER Respiratory Rate 16 10/15/2022 2:11 PM MORNING CAREGIVER Oxygen Saturation 100% 10/15/2022 2:11 PM MORNING CAREGIVER Inhaled Oxygen Concentration - - Weight 95.7 kg (211 lb) 10/15/2022 2:11 PM MORNING CAREGIVER Height 162.6 cm (5' 4 ) 10/15/2022 2:11 PM MORNING CAREGIVER Body Mass Index 36.22 10/15/2022 2:11 PM MORNING CAREGIVER Plan of Treatment Health Maintenance Due Date Last Done Comments Annual Physical 1988 Hepatitis B Vaccines (1 of 3 - 19+ 3-dose series) 2004 Pneumococcal Vaccine: Pediatrics (0 to 5 Years) and At-Risk Patients (6 to 49 Years) (1 of 2 - PCV) 2004 HPV Vaccines (2 - 3-dose series) 02/16/2008 01/19/2008 PHQ-2 (Physician [place]) 10/17/2024 Cervical Cancer Screening Pa p Smear [...] HEPATITIS C ANTIBODY Routine 09/16/2022 12:20 PM MORNING CAREGIVER Unprotected sex Vaginal discharge HPV MRNA E6/E7 Routine 09/16/2022 11:17 AM MORNING CAREGIVER CYTOPATH CERV/VAG THIN LAYER Routine 09/16/2022 11:17 AM MORNING CAREGIVER Encounter for well woman exam from Last 3 Months or Most Recently Relevant to Health Maintenance Results * HEPATITIS C ANTIBODY ([facility] ONLY) (09/16/2022 12:20 PM MORNING CAREGIVER) HEPATITIS C AB NON-REACTI VE NON-REACT [place] 09/16/2022 10:01 PM MORNING CAREGIVER [facility] Comment: ANTIBODIES TO HCV NOT DETECTED. DOES NOT EXCLUDE THE POSSIBILITY OF EXPOSURE TO HCV. 09/16/2022 12:2 0 PM MORNING CAREGIVER Tess KERR LABORATORY Final Resul t [facility] [address] [place] [address], [id number] * HPV MRNA E6/E7 (09/16/2022 11:17 AM MORNING CAREGIVER) Pathologist [facility] HPV MRNA E6/E7 Not Detected Not Detected [facility] Comment: Methodology: Gas Producer-Mediated Amplification This assay detects E6/E7 viral messenger RNA (mRNA) from 14 high-risk HPV types (16,18,31,33,35,39,45,51,52,56,58,59,66,68). Cervical sources are required for HPV testing. If a vaginal source from a patient who has had a total hysterectomy with removal of cervix was submitted, please contact the testing laboratory for alternative testing options. For additional information, please refer to http://education.[employer]/faq/GIC173w6 (This link if provided for information/ educational purposes only.) 09/16/2022 11:1 7 AM MORNING CAREGIVER 09/17/2022 12:30 AM MORNING CAREGIVER Narrative Resulting Agency Comment Performing Organization Information: Site ID: [id number] Name: [employer] [facility] Address: [address] [place], [place] [address] [address] Director: Param Ramirez D.O., MPH Tess KERR PATHOLOGY/CYTOLOGY ORDERABL ES Final Result [employer] [facility] [address] [place] [address] [place] [address], * Cytopath Cerv/Vag Thin Layer (09/16/2022 11:17 AM MORNING CAREGIVER) CLINICAL INFORMATION: Routine exam [facility] [place] Clinical Information: 08/30/2022 [place] Date of Last Pap NONE GIVEN [employer] [facility] [place] Previous Biopsy? NONE GIVEN [employer] [facility] [place] SOURCE (QST) Cervix, [facility] [place] STATEMENT OF ADEQUACY: [facility] [place] Comment: Satisfactory for evaluation. Endocervical/transformation zone component present. PAP INTERPRETATION/RESU LTS Negative for intraepithelial lesion or malignancy. [facility] [facility] [place] INFECTION: Shift in vaginal sanjuana suggestive of bacterial vaginosis. [facility] [place] [facility] [place] [place] Comment: LM, CT(ASCP) CT screening location: [facility] [address] [address] [place] [address] COMMENT: [employer] [place] Comment: EXPLANATORY NOTE: The Pap is [...] current clinical information. 09/16/2022 11:1 7 AM MORNING CAREGIVER 09/17/2022 12:30 AM MORNING CAREGIVER Narrative Resulting Agency Comment Performing Organization Information: Site ID: [id number] Name: [facility] Address: [facility] [place] [address] Director: Tara Arellano us Tess KERR PATHOLOGY/CYTOLOGY ORDERABL ES Final Result [facility] [address], from Last 3 Months or Most Recently Relevant to Health Maintenance Insurance [facility] Care Teams Forest Practices Field Coordinator Relationship Specialty Start Date End Date Tess Vasquez APNP [address] [place] [id number] PCP - General NURSE PRACTITIONER 04/14/22
--- OUTSIDE RECORDS SUMMARY | 2025-02-13 13:20 | XMS_ITS | CONTINUITY OF CARE DOCUMENT ---
Author Name becka becka Address Unknown Organization [facility] Address [address] [place] [address] [address] [place] [address] Phone [phone] Care Team Providers Care Intelligence Officer Name Role Phone Tye DOTSON, Baltazar Unavailable JOSEFINA DOTSON, HASMUKH Unavailable Unav ailable INSURANCE PROVIDERS Payer name Policy type / Coverage type Loyal red libertarian ID [id number] PAY
--- OUTSIDE RECORDS SUMMARY | 2025-02-13 13:20 | XMS_ITS | Clinical Summary ---
Author Organization [facility] Address [address] [place] [address] Phone Care Team Providers Care Still Operator Whiskey Name Role Phone Gabino Wilson MD Primary Care Provider [phone] Medications vitamin-iron fumarate-folic acid 27 mg-0.8 mg Tablet Take 1 Tablet by mouth daily. 30 Tablet 1 11/14/2020 Active Active Problems Problem Noted Date Diagnosed Date Tobacco use 11/14/2020 Social History Tobacco Use Types Packs/Day Years Used Date Smoking Tobacco: Some Days Comments Unknown Sex and Gender Information Value Date Recorded Sex Assigned at Not on file Legal Sex Female 8:13 PM FENCE BUILDER Gender Identity Not on file Sexual Orientation Not on file Last Filed Vital Signs Vital Sign Reading Time Taken Comments Blood Pressure 118/46 11/14/2020 8:16 PM FENCE BUILDER Pulse 72 11/14/2020 8:16 PM FENCE BUILDER Temperature 36.4 C (97.5 F) 11/14/2020 8:16 PM FENCE BUILDER Respiratory Rate 20 11/14/2020 8:16 PM FENCE BUILDER Oxygen Saturation 98% 11/14/2020 8:16 PM FENCE BUILDER Inhaled Oxygen Concentration - - Weight 72.6 kg (160 lb) 11/14/2020 8:16 PM FENCE BUILDER Height 154.9 cm (5' 1 ) 11/14/2020 8:16 PM FENCE BUILDER Body Mass Index 30.23 11/14/2020 8:16 PM FENCE BUILDER Plan of Treatment Health Maintenance Due Date Last Done Comments DTAP/TDAP/TD VACCINES (1 - Tdap) 2004 HEPATITIS B VACCINES (1 of 3 - 19+ 3-dose series) 2004 HPV/Cotest (21-29) 2006 CERVICAL CANCER SCREENING 2015 HPV/Cotest (30-65) 2015 PAP SMEAR 2015 INFLUENZA VACCINE (#1) 2024 HPV VACCINES Aged Out No longer eligi ble based on patient's age to complete this topic Insurance [facility] MEDICAID Care Teams Still Operator Whiskey Relationship Specialty Start Date End Date Gabino Wilson MD [address] [place] [phone] PCP - General Family Practice 11/14/20
--- OUTSIDE RECORDS SUMMARY | 2025-02-13 13:20 | XMS_ITS | Clinical Summary ---
Author Organization 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
--- OUTSIDE RECORDS SUMMARY | 2025-02-13 13:20 | XMS_ITS | Referral Summary ---
Author Organization 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
--- NOTE | 2025-02-13 13:43 | ED_ITS ---
HPI - General Adult General Chief complaint: Upper Respiratory Infection Stated complaint: fever, sore throat, cough Time Seen by Provider: 02/13/25 13:13 History of Present Illness HPI narrative: Patient 39-year-old female who presents emergency department with chief complaint of cough sore throat and chest congestion. Patient reports he has had decreased appetite reports hurts whenever she swallows. Patient states that her child has been sick as well patient reports he has had some discomfort in her ribs whenever she coughs. Related Data Allergies Allergy/AdvReac Type Severity Reaction Status Date / Time latex Allergy Intermediate rash with Verified 02/13/25 12:07 latex gloves Sulfa (Sulfonamide Allergy Mild BLISTERS Verified 02/13/25 12:07 Antibiotics) AND RASH venlafaxine (From Effexor) Allergy Other Verified 02/13/25 12:07 Review of Systems Review of Systems: A 10 system review of systems was completed on the patient and is negative except for what is stated in the HPI. Nursing and ancillary documentation was reviewed. PMFSH Past Medical History Medical History Pain during labor depression Anxiety Depression Surgical History Surgical History No history of previous surgery Social History Social History Smoking packs per day: 0.5 Smoking cigarettes per day: 10.0 Smoking status: Current every day smoker Tobacco type: cigarettes Second hand tobacco smoke exposure: Yes Additional smoking assessment comments: 1-2 cigs a day Substance use: former Spiritual care concerns: No Exam Narrative: GENERAL: Well-appearing, well-nourished, and in no acute distress. HEAD: Normocephalic, atraumatic. EYES: PERRLA and EOMI. ENT: Nares clear, no rhinorrhea or epistaxis. Mucous membranes moist. NECK: Supple. CHEST: Clear to auscultation. No respiratory distress. HEART: Regular rate and rhythm. No murmur heard. Normal peripheral pulses. ABDOMEN: Soft, nontender, nondistended, normal active bowel sounds. EXTREMITIES: Normal range of motion. No edema. SKIN: Warm, dry, no rash. NEURO: No focal deficits. Alert and oriented x3. PSYCH: Normal mood and affect. Course Vital Signs Vital signs: Vital Signs Temperature 36.9 C 02/13/25 11:10 Pulse Rate 76 02/13/25 11:10 Respiratory Rate 20 02/13/25 11:10 Blood Pressure 106/70 02/13/25 11:10 Pulse Oximetry 97 02/13/25 11:10 Temperature 36.9 C 02/13/25 11:10 Pulse Rate 76 02/13/25 11:10 Respiratory Rate 20 02/13/25 11:10 Blood Pressure 106/70 02/13/25 11:10 Pulse Oximetry 97 02/13/25 12:06 Oxygen Delivery Room Air 02/13/25 12:06 Medical Decision Making [facility] Narrative Medical decision making narrative: Differential diagnosis includes pneumonia,strep, COVID, flu, RSV Chest x-ray showed no focal infiltrate COVID flu and RSV were negative strep was negative Vital Signs Vital Signs: Vital Signs Temperature 36.9 C 02/13/25 11:10 Pulse Rate 76 02/13/25 11:10 Respiratory Rate 20 02/13/25 11:10 Blood Pressure 106/70 02/13/25 11:10 Pulse Oximetry 97 02/13/25 11:10 Temperature 36.9 C 02/13/25 11:10 Pulse Rate 76 02/13/25 11:10 Respiratory Rate 20 02/13/25 11:10 Blood Pressure 106/70 02/13/25 11:10 Pulse Oximetry 97 02/13/25 12:06 Oxygen Delivery Room Air 02/13/25 12:06 Lab Data Labs: Lab Results 02/13/25 Range/Units 12:24 Influenza A (RT-PCR) Negative (Negative) Influenza B (RT-PCR) Negative (Negative) RSV (RT-PCR) Negative (Negative) SARS-CoV-2 RNA (RT-PCR) Negative (Negative) Group A Strep (PCR) Not detected (Negative) Discharge Plan Discharge Clinical Impression: Acute viral pharyngitis, Acute upper respiratory infection Patient Disposition: Home Condition: Stable Instructions: Antibiotic Form, Pharyngitis (ED), Upper Respiratory Infection (ED) Patient Language: Luxembourgish Prescriptions: New prednisone 20 mg tablet 40 mg PO DAILY 5 Days Qty: 10 0RF benzonatate 200 mg capsule 200 mg PO TID PRN (Reason: cough) Qty: 21 0RF No Action fluticasone propionate [Flonase Allergy Relief] 50 mcg/actuation spray,suspension 1 spray intranasal DAILY Qty: 16 0RF Rx Instructions: administer into each nostril amoxicillin-pot clavulanate 875-125 mg tablet 1 tablet PO Q12H Qty: 14 0RF clindamycin HCl 150 mg capsule 450 mg PO Q8H 7 Days Qty: 63 0RF ondansetron 4 mg tablet,disintegrating 4 mg PO Q8H PRN (Reason: nausea and vomiting) Qty: 20 0RF hydrocodone-acetaminophen 10-325 mg tablet 0.5 tablet PO Q6H PRN (Reason: pain) Qty: 5 0RF amoxicillin-pot clavulanate 875-125 mg tablet 1 tablet PO Q12H Qty: 14 0RF ondansetron 4 mg tablet,disintegrating 4 mg PO Q8H PRN (Reason: nausea and vomiting) Qty: 14 0RF metoclopramide HCl [Reglan] 10 mg tablet 10 mg PO Q6H PRN (Reason: nausea and vomiting) Qty: 20 0RF guaifenesin [Mucus Relief ER] 600 mg tablet extended release 12hr 600 mg PO BID Qty: 14 0RF Saline Nasal Mist 3 % mist 1 spray intranasal QID Qty: 126 0RF ibuprofen 600 mg Tablet 600 mg PO Q6H PRN (Reason: Cramping) Qty: 30 0RF Follow-up/Referrals: Adela,TANIA Pulido [Primary Care Provider] - Time of Disposition: 14:05
[2025-02-13] MEDS: predniSONE 20 MG TABLET 60 MG PO (14:16)
[2025-02-13] MEDS: BENZONATATE 100 MG CAPSULE 200 MG PO (14:16)
== END 2025-02-13 14:20 | disposition home or self-care (01) ==
PROVIDERS: Emergency Medicine; Emergency Provider Emergency Medicine; PCP Registered Nurse
DX: J06.9 Acute upper respiratory infection, unspecified (principal); J02.9 Acute pharyngitis, unspecified; Z20.822 Contact with and (suspected) exposure to COVID-19; F17.210 Nicotine dependence, cigarettes, uncomplicated
CPT/HCPCS: 71046; 87637; 87651; 99283; A9270; J7512